=== PATIENT | female | born 1970 | race Caucasian/White ===

== ENCOUNTER → 2017-04-17 | Outpatient (CLI) | payer BC ==
[~2017-04-17] MED LIST: FLUO20CA35 PO
--- NOTE | 2017-04-18 13:37 | MAMMOGRAPHY REPORT ---
BILATERAL DIGITAL SCREENING MAMMOGRAM TOMOSYNTHESIS WITH CAD: 04/17/2017 CLINICAL HISTORY: Routine screening. Patient has no complaints. TECHNIQUE: Breast tomosynthesis in addition to standard 2D mammography was performed. Current study was also evaluated with a Computer Aided Detection (CAD) system. COMPARISON: Comparison is made to exams dated: 04/16/2016 mammogram, 04/13/2015 mammogram, 04/12/2014 m ammogram, 04/21/2012 mammogram, 03/26/2011 mammogram - [facility], and 02/22/2009. BREAST COMPOSITION: The tissue of both breasts is heterogeneously dense, which may obscure small mas ses. FINDINGS: No suspicious masses, calcifications, or areas of architectural distortion are noted in ei ther breast. There has been no significant interval change compared to prior exams. Circumscribed be nign-appearing masses are again noted bilaterally. IMPRESSION: ACR BI-RADS CATEGORY 2: BENIGN There is no mammographic evidence of malignancy. A 1 year screening mammogram is recommended. The pa tient will receive written notification of the results. Approximately 10% of breast cancers are not detected with mammography. A negative mammographic report should not delay biopsy if a clinically suggestive mass is present. Akilah Hernandez M.D. /:04/17/2017 16:38:06 Disbursement Clerk: Beatrice AARON)(M), [facility] letter sent: Normal 1/2 BI-RADS Code: ACR BI-RADS Category 2: Benign
== END | disposition home or self-care (01) ==
LOC: C.MAMM 09:40
PROVIDERS: ATTEND Internal Medicine
DX: Z12.31 Encounter for screening mammogram for malignant neoplasm of breast (principal)

== ENCOUNTER 2022-06-10 22:10 | Inpatient (IN) ==
--- NOTE | 2022-06-10 22:19 | Emergency Department Note ---
Impression & Plan Seizure, Abnormal blood electrolyte level, History of craniotomy ED Provider Note NAME: RADHA AVERY AGE: 52 SEX: F : 1970 ARRIVES VIA: Ambulance INFORMANT: Patient, ED PROVIDER(S): Percy Diaz MD CHIEF COMPLAINT: Seizure MEDICAL DECISION MAKING: Patient did present due to concern for seizure x2 prior to arrival and did receive 2 mg of IV Ativan. Patient is mildly postictal upon presentation blood work is obtained along with a CT of the head blood cultures and lactate also ordered and the patient was ord ered IV fluids and a loading dose of Keppra. History is limited initially and did arrive to provide additional history. I did call pharmacy in order to help facilitate Keppra. 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 The patient unfortunately did develop an infection at that time and was on chronic antibiotics. The patient did complete a course of this and stopped treatment last week and did have her PICC line removed. The patient did have breakthrough seizures beginning in March of last year around [facility]. Patient has been out of her acetazolamide for approximate 3 to 4 days. Patient is following with a Dr. Amezcua at [facility]. The patient's blood work shows a normal white count hemoglobin and platelet count. The patient's kidney function is unremarkable. The patient does have multiple electrolyte abnormalities including hypokalemia hypophosphatemia and hypomagnesemia which were ordered for replacement and I did order IV phosphorus magnesium and potassium. Initial lactate of 3. Repeat was 0.7. Patient is EKG showed ST and T wave abnormality but no prior EKGs for comparison. The patient tachycardia did improve and the patient was no longer on supplemental nasal cannula oxygen. I did initiate a call through the transfer center at [facility] I did speak with the patient's primary surgeon Dr. Amezcua. I did discuss the results and findings including the patient's CAT scan of the head. She did not recommend transfer at this time but would like to facilitate neurology follow-up locally as this may benefit the patient as opposed to returning to the [facility]. I did speak with the on-call hospitalist Dr. Espinosa the patient was admitted to the medicine service. Prior /Outside records reviewed: I reviewed prior pulm outpatient note from Dr. Alvarenga. Differential diagnosis: Epilepsy, infection, hypoglycemia, electrolyte abnormalities, cardiac sources, intracerebral event, trauma, toxicologic, neurologic, syncope, as well as other pathologies. Diagnostics, as interpreted by me: ECG: Sinus tachycardia, rate of 121, normal intervals normal axis, ST and T wave abnormality per leads. No priors for comparison. Cardiac monitoring: An order was placed for continuous cardiac monitoring. The monitor shows a rate of 122 with tachycardic and regular rhythm. Patient was placed on pulse oximetry Medical decision rules: none Imaging studies: See below CT of the head per stat rad Right frontal encephalomalacia may reflect a seizure focus. Right-sided transfrontal BRIDGE REPAIRER shunt placed with tip in the region of the frontal horn right lateral ventricle potentially invaginating the lateral wall of the ventricle into the adjacent parenchyma. Incidental ependymal calcifications noted right lateral ventricle. Radiologist Deion Wilkinson HPI: Patient presents due to concern for seizures. The patient reportedly had a seizure at home prior to arrival this resolved EMS was called and in route the patient initially had focality in her right upper extremity and then had generalized tonic-clonic seizure and hypoxia. The patient was placed on a nonrebreather and the patient did receive 2 of IV Ativan. This did stop the seizure. The patient BSG was in the 130s. History is limited due to the patient's postictal status. Additional history was obtained from after arrival. 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 The patient unfortunately did develop an infection at that time and was on chronic antibiotics. The patient did complete a course of this and stopped treatment last week and did have her PICC line re moved. The patient did have breakthrough seizures beginning in March of last year around [facility]. Patient has been out of her acetazolamide for approximate 3 to 4 days. Patient is following with a Dr. Amezcua at [facility]. PAST MEDICAL HISTORY: See Below PAST SURGICAL HISTORY: See Below SOCIAL HISTORY: See Below HOME MEDICATIONS: See Below ALLERGIES: See Below VITALS: See Below PHYSICAL EXAMINATION: GENERAL: NAD, wearing a mask, non-toxic. EYE EXAM: Normal conjunctiva. PERRL, no anisocoria and EOM's grossly intact w/o pain. Head: Evidence of right-sided craniotomy well-healed incisional scars noted, no overlying erythema fluctuance or drainage NECK: Supple, no nuchal rigidity, no adenopathy, non-tender. No signs of meningismus. FROM of the neck with good chin to chest and neck extension. No stridor. LUNGS: Clear to auscultation. Normal chest wall mechanics. HEART: NSR, no MRG. ABDOMEN: Abdomen soft, non-tender, normo-active bowel sounds, no masses, no rebound or guarding. BACK: No CVA TTP. SKIN: No rashes and no bruising. UPPER EXTREMITIES: Upper extremities are grossly normal. LOWER EXTREMITIES: Grossly normal, no edema. NEURO EXAM: Opens eyes to voice, cranial nerves II through XII intact, moves all 4 extremities. Past Med/Surg History Medical History Abdominal wall bulge Breast lump on right side at 12 o'clock position Murmur Neurocytoma Surgical History H/O craniotomy History of brain surgery History of hernia repair History of hysterectomy Family History Family/Other Cancer Social History Smoking Status: Current every day smoker Tobacco Type: Cigarettes Age Started Using Tobacco: 48; Second Hand Exposure: Yes; Hx Alcohol Use: Yes Hx Substance Use: No Preferred Language: Hungarian Communication Ability: Effective Beliefs That Will Affect Care: Roman Catholic Feels Safe at Home: Yes Assistive Devices: None Allergies Allergies Allergy/AdvReac Type Severity Reaction Status Date / Time Iodinated Contrast Media Allergy Severe Difficulty Verified 06/11/22 01:16 Breathing gadopentetic acid AdvReac Intermediate ITCHY Verified 06/10/22 23:43 EYES/MILD COUGH Home Meds Home Medications Medication Instructions Recorded Confirmed pantoprazole 20 mg tablet,delayed 20 mg PO DAILY 10/14/19 06/10/22 release acetazolamide 250 mg tablet 500 mg PO TID 06/10/22 06/11/22 fluoxetine 10 mg capsule 10 mg PO DAILY 06/10/22 06/10/22 levetiracetam 100 mg/mL oral 1,000 mg PO BID 06/10/22 06/10/22 solution omeprazole 20 mg capsule,delayed 20 mg PO BID 06/10/22 06/10/22 release ondansetron HCl 4 mg tablet 4 mg PO TID PRN NAUSEA/VOMITING 06/10/22 06/10/22 Results & Data (ED) Vital Signs Vital Signs - 24 hr 06/10/22 22:24 06/10/22 22:15 06/10/22 22:33 Temperature 36.9 C Temperature Source Oral Pulse Rate 109 H Pulse Rate [Apical] 111 H Pulse Rate from SpO2 Sensor Respiratory Rate 16 16 Blood Pressure 170/89 H Blood Pressure [Right Arm] 175/109 H Blood Pressure Mean 116 Blood Pressure Mean [Right Arm] 131 Pulse Oximetry 89 L 92 98 Oxygen Delivery Method Room Air Room Air Nasal Cannula Oxygen Flow Rate 0 3 Sepsis Recent Fever Within 48 Hours No Sepsis New/Unexplained Change in Mental Status No Sepsis Action Taken by Nursing No Action Required Oxygen Flow Rate - Titration 3 Pulse Oximetry Post Tiitration 99 06/10/22 23:09 06/10/22 22:14 06/10/22 22:15 Temperature Temperature Source Pulse Rate 137 H 125 H Pulse Rate [Apical] 97 H Pulse Rate from SpO2 Sensor 123 H 127 H Respiratory Rate 10 L 15 15 Blood Pressure Blood Pressure [Right Arm] 152/73 H Blood Pressure Mean Blood Pressure Mean [Right Arm] 99 Pulse Oximetry 99 93 93 Oxygen Delivery Method Nasal Cannula Oxygen Flow Rate 3 Sepsis Recent Fever Within 48 Hours Sepsis New/Unexplained Change in Mental Status Sepsis Action Taken by Nursing Oxygen Flow Rate - Titration Pulse Oximetry Post Tiitration 06/10/22 22:15 06/10/22 22:30 06/10/22 22:38 Temperature Temperature Source Pulse Rate 106 H Pulse Rate [Apical] Pulse Rate from SpO2 Sensor 106 H Respiratory Rate 22 Blood Pressure 175/109 H 170/89 H Blood Pressure [Right Arm] Blood Pressure Mean 131 116 Blood Pressure Mean [Right Arm] Pulse Oximetry 96 Oxygen Delivery Method Oxygen Flow Rate Sepsis Recent Fever Within 48 Hours Sepsis New/Unexplained Change in Mental Status Sepsis Action Taken by Nursing Oxygen Flow Rate - Titration Pulse Oximetry Post Tiitration 06/10/22 22:38 06/10/22 22:46 06/10/22 22:46 Temperature Temperature Source Pulse Rate 111 H 106 H Pulse Rate [Apical] Pulse Rate from SpO2 Sensor 111 H 108 H Respiratory Rate 17 13 Blood Pressure 124/88 Blood Pressure [Right Arm] Blood Pressure Mean 100 Blood Pressure Mean [Right Arm] Pulse Oximetry 99 96 Oxygen Delivery Method Oxygen Flow Rate Sepsis Recent Fever Within 48 Hours Sepsis New/Unexplained Change in Mental Status Sepsis Action Taken by Nursing Oxygen Flow Rate - Titration Pulse Oximetry Post Tiitration 06/10/22 23:07 06/10/22 23:08 06/10/22 23:08 Temperature Temperature Source Pulse Rate 101 H 99 H Pulse Rate [Apical] Pulse Rate from SpO2 Sensor 98 H Respiratory Rate 15 23 Blood Pressure 152/73 H Blood Pressure [Right Arm] Blood Pressure Mean 99 Blood Pressure Mean [Right Arm] Pulse Oximetry 98 Oxygen Delivery Method Oxygen Flow Rate Sepsis Recent Fever Within 48 Hours Sepsis New/Unexplained Change in Mental Status Sepsis Action Taken by Nursing Oxygen Flow Rate - Titration Pulse Oximetry Post Tiitration 06/10/22 23:15 06/10/22 23:15 06/10/22 23:30 Temperature Temperature Source Pulse Rate 101 H 96 H Pulse Rate [Apical] Pulse Rate from SpO2 Sensor 99 H 96 H Respiratory Rate 19 11 L Blood Pressure 130/105 H Blood Pressure [Right Arm] Blood Pressure Mean 113 Blood Pressure Mean [Right Arm] Pulse Oximetry 100 100 Oxygen Delivery Method Oxygen Flow Rate Sepsis Recent Fever Within 48 Hours Sepsis New/Unexplained Change in Mental Status Sepsis Action Taken by Nursing Oxygen Flow Rate - Titration Pulse Oximetry Post Tiitration 06/10/22 23:52 06/10/22 23:52 06/11/22 00:00 Temperature Temperature Source Pulse Rate Pulse Rate [Apical] Pulse Rate from SpO2 Sensor 98 H Respiratory Rate 26 H Blood Pressure 144/99 H 156/90 H Blood Pressure [Right Arm] Blood Pressure Mean 114 112 Blood Pressure Mean [Right Arm] Pulse Oximetry 97 Oxygen Delivery Method Oxygen Flow Rate Sepsis Recent Fever Within 48 Hours Sepsis New/Unexplained Change in Mental Status Sepsis Action Taken by Nursing Oxygen Flow Rate - Titration Pulse Oximetry Post Tiitration 06/11/22 00:00 06/11/22 00:30 06/11/22 00:30 Temperature Temperature Source Pulse Rate 92 H 91 H Pulse Rate [Apical] Pulse Rate from SpO2 Sensor 91 H 93 H Respiratory Rate 22 24 Blood Pressure 145/101 H Blood Pressure [Right Arm] Blood Pressure Mean 115 Blood Pressure Mean [Right Arm] Pulse Oximetry 98 99 Oxygen Delivery Method Oxygen Flow Rate Sepsis Recent Fever Within 48 Hours Sepsis New/Unexplained Change in Mental Status Sepsis Action Taken by Nursing Oxygen Flow Rate - Titration Pulse Oximetry Post Tiitration 06/11/22 01:00 06/11/22 01:30 06/11/22 02:01 Temperature Temperature Source Pulse Rate 92 H 103 H 103 H Pulse Rate [Apical] Pulse Rate from SpO2 Sensor 104 H 101 H Respiratory Rate 19 15 21 Blood Pressure 132/72 117/79 Blood Pressure [Right Arm] Blood Pressure Mean 92 91 Blood Pressure Mean [Right Arm] Pulse Oximetry 91 96 Oxygen Delivery Method Oxygen Flow Rate Sepsis Recent Fever Within 48 Hours Sepsis New/Unexplained Change in Mental Status Sepsis Action Taken by Nursing Oxygen Flow Rate - Titration Pulse Oximetry Post Tiitration Home Medications Current Medication List: was personally reviewed by me Laboratory Data Attestation: I reviewed the patient's lab results. 06/10/22 22:25 06/10/22 22:25 Lab Results 06/10/22 06/10/22 06/10/22 Range/Units 22:25 22:25 22:25 WBC 8.87 (4.8-10.8) K/ul RBC 4.07 L (4.20-5.40) M/uL Hgb 12.1 (12.0-16.0) g/dl Hct 35.6 L (37.0-47.0) % MCV 87.5 (80.0-100.0) fL MCH 29.7 (25.0-34.0) pg MCHC 34.0 (32.0-36.0) g/dL RDW Std Deviation 39.7 (36.4-46.3) fL RDW Coeff of Malaika 12.4 (11.5-14.5) % Plt Count 200 (130-400) K/uL MPV 11.4 (9.4-12.4) fL Immature Gran % (Auto) 0.5 % Neut % (Auto) 82.4 % Lymph % (Auto) 9.4 % Rusk % (Auto) 6.2 % Eos % (Auto) 1.0 % Baso % (Auto) 0.5 % Neut # (Auto) 7.32 H (1.40-6.50) K/uL Lymph # (Auto) 0.83 L (1.2-3.4) K/uL Rusk # (Auto) 0.55 (0.11-0.59) K/uL Eos # (Auto) 0.09 (0-0.50) K/uL Baso # (Auto) 0.04 (0-0.2) K/uL Immature Gran # (Auto) 0.04 (0.01-0.20) K/uL Sodium 141 (136-145) mmol/L Potassium 3.1 L (3.5-5.1) mmol/L Chloride 105 (98-107) mmol/L Carbon Dioxide 26 (21-32) mmol/L Anion Gap 10 (3-11) BUN 4 L (6-23) mg/dl Creatinine 0.62 (0.6-1.2) mg/dl Est Cr Clr Drug Dosing 126.8 ml/min Est GFR ( Amer) 118.5 ml/min Est GFR (Non-Af Amer) 102.2 ml/min BUN/Creatinine Ratio 6.5 L (10-20) Glucose 162 H (70-99(Fasting)) mg/dl Lactate 3.0 H* (0.4-2.0) mmol/L Calcium 8.5 (8.5-10.1) mg/dl Phosphorus 1.9 L (2.5-4.9) mg/dl Magnesium 1.5 L (1.7-2.4) mg/dl Total Bilirubin 0.5 (0.2-1.0) mg/dl AST 20 (13-39) U/L ALT 12 (7-52) U/L Alkaline Phosphatase 83 (34-104) U/L Total Protein 6.3 (6.0-8.3) gm/dl Albumin 3.9 (3.4-5.0) gm/dl Globulin 2.4 L (2.5-4.0) gm/dl Albumin/Globulin Ratio 1.6 (0.9-2) 06/11/22 Range/Units 00:26 WBC (4.8-10.8) K/ul RBC (4.20-5.40) M/uL Hgb (12.0-16.0) g/dl Hct (37.0-47.0) % MCV (80.0-100.0) fL MCH (25.0-34.0) pg MCHC (32.0-36.0) g/dL RDW Std Deviation (36.4-46.3) fL RDW Coeff of Malaika (11.5-14.5) % Plt Count (130-400) K/uL MPV (9.4-12.4) fL Immature Gran % (Auto) % Neut % (Auto) % Lymph % (Auto) % Rusk % (Auto) % Eos % (Auto) % Baso % (Auto) % Neut # (Auto) (1.40-6.50) K/uL Lymph # (Auto) (1.2-3.4) K/uL Rusk # (Auto) (0.11-0.59) K/uL Eos # (Auto) (0-0.50) K/uL Baso # (Auto) (0-0.2) K/uL Immature Gran # (Auto) (0.01-0.20) K/uL Sodium (136-145) mmol/L Potassium (3.5-5.1) mmol/L Chloride (98-107) mmol/L Carbon Dioxide (21-32) mmol/L Anion Gap (3-11) BUN (6-23) mg/dl Creatinine (0.6-1.2) mg/dl Est Cr Clr Drug Dosing ml/min Est GFR ( Amer) ml/min Est GFR (Non-Af Amer) ml/min BUN/Creatinine Ratio (10-20) Glucose (70-99(Fasting)) mg/dl Lactate 0.7 (0.4-2.0) mmol/L Calcium (8.5-10.1) mg/dl Phosphorus (2.5-4.9) mg/dl Magnesium (1.7-2.4) mg/dl Total Bilirubin (0.2-1.0) mg/dl AST (13-39) U/L ALT (7-52) U/L Alkaline Phosphatase (34-104) U/L Total Protein (6.0-8.3) gm/dl Albumin (3.4-5.0) gm/dl Globulin (2.5-4.0) gm/dl Albumin/Globulin Ratio (0.9-2) Administered Medications Acetaminophen (Acetaminophen 325 Mg Tab) 650 mg PO Q4H PRN PRN Reason: Pain or Fever Stop: 07/11/22 03:05 Last Admin: 06/11/22 06:46 Dose: 650 mg Documented By: DEYSI Fluoxetine HCl (Fluoxetine Hcl 10 Mg Cap) 10 mg PO DAILY HUAN Stop: 07/11/22 08:59 Last Admin: 06/11/22 09:22 Dose: 10 mg Documented By: BAUTISTA Cefepime HCl 2,000 mg/ Syringe 20 mls @ 5 mls/min IV Q8H HUAN; Protocol Stop: 06/21/22 06:44 Last Admin: 06/11/22 15:59 Dose: 5 mls/min Documented By: Admin: 06/11/22 11:04 Dose: 5 mls/min Documented By: BAUTISTA Levetiracetam (Levetiracetam Oral Soln 100mg/Ml) 1,500 mg PO BID HUAN Stop: 07/11/22 09:59 Last Admin: 06/11/22 11:04 Dose: 1,500 mg Documented By: BAUTISTA Pantoprazole Sodium (Pantoprazole 40 Mg Tab) 40 mg PO DAILY HUAN Stop: 07/11/22 08:59 Last Admin: 06/11/22 09:24 Dose: 40 mg Documented By: BAUTISTA Potassium Chloride (Potassium Chloride 20 Meq/15 Ml Udc) 20 meq PO BID HUAN Stop: 07/11/22 09:59 Last Admin: 06/11/22 11:04 Dose: 20 meq Documented By: BAUTISTA Discontinued Medications Acetazolamide (Acetazolamide 250 Mg Tab) 250 mg PO TID HUAN Stop: 07/11/22 08:59 Last Admin: 06/11/22 09:26 Dose: Not Given Documented By: BAUTISTA Acetazolamide (Acetazolamide 250 Mg Tab) 250 mg PO TID HUAN Stop: 07/11/22 09:44 Last Admin: 06/11/22 15:04 Dose: 250 mg Documented By: Admin: 06/11/22 09:46 Dose: 250 mg Documented By: BAUTISTA Sodium Chloride (Nss 1000ml) 1,000 mls @ 999 mls/hr IV .Q1H1M HUAN Stop: 06/10/22 23:30 Last Infusion: 06/11/22 00:33 Dose: 0 mls/hr Documented By: Admin: 06/10/22 23:09 Dose: 999 mls/hr Documented By: BALDO Levetiracetam 1,750 mg/ Sodium (Chloride) 267.5 mls @ 999 mls/hr IV NOW STA Stop: 06/10/22 22:40 Last Infusion: 06/10/22 23:05 Dose: 0 mls/hr Documented By: Admin: 06/10/22 22:45 Dose: 999 mls/hr Documented By: MICKIE Magnesium Sulfate/Dextrose (Magnesium Sulfate / D5w) 1 gm in 100 mls @ 100 mls/hr IV NOW STA Stop: 06/11/22 00:15 Last Infusion: 06/11/22 00:33 Dose: 0 mls/hr Documented By: Admin: 06/10/22 23:22 Dose: 100 mls/hr Documented By: BALDO Potassium Phosphate 9 mmol/ (Sodium Chloride) 253 mls @ 170 mls/hr IV 2330 ONE Stop: 06/11/22 00:59 Last Infusion: 06/11/22 02:13 Dose: 0 mls/hr Documented By: Admin: 06/11/22 00:43 Dose: 170 mls/hr Documented By: DEYSI Potassium Chloride (K Jose R / Wtr) 10 meq in 100 mls @ 100 mls/hr IV ONE ONE; Protocol Stop: 06/11/22 01:42 Last Infusion: 06/11/22 03:36 Dose: 0 mls/hr Documented By: Admin: 06/11/22 02:20 Dose: 100 mls/hr Documented By: DEYSI Sodium Chloride (Nss 1000ml) 500 mls @ 999 mls/hr IV .Q31M ONE Stop: 06/11/22 01:13 Last Infusion: 06/11/22 03:36 Dose: 0 mls/hr Documented By: Admin: 06/11/22 02:20 Dose: 999 mls/hr Documented By: DEYSI Magnesium Sulfate/Dextrose (Magnesium Sulfate / D5w) 1 gm in 100 mls @ 50 mls/hr IV ONE ONE Stop: 06/11/22 03:07 Last Infusion: 06/11/22 04:46 Dose: 0 mls/hr Documented By: Admin: 06/11/22 02:22 Dose: 50 mls/hr Documented By: DEYSI Lactated Ringer's (Lr) 1,000 mls @ 50 mls/hr IV .Q20H ONE Stop: 06/11/22 21:08 Last Admin: 06/11/22 02:22 Dose: 50 mls/hr Documented By: DEYSI Multivitamins 10 ml/ Thiamine HCl 100 mg/ Folic Acid 1 mg/Sodium Chloride 1,011.2 mls @ 100 mls/hr IV .Q10H7M ONE Stop: 06/11/22 16:41 Last Admin: 06/11/22 09:41 Dose: 100 mls/hr Documented By: BAUTISTA Levetiracetam (Levetiracetam 500 Mg Tab) 1,500 mg PO BID HUAN Stop: 07/11/22 08:59 Last Admin: 06/11/22 09:23 Dose: Not Given Documented By: BAUTISTA Potassium Chloride (Potassium Chloride Pwd 20 Meq Pack) 40 meq PO NOW STA Stop: 06/11/22 01:09 Last Admin: 06/11/22 02:20 Dose: 40 meq Documented By: DEYSI Potassium Chloride (Potassium Chloride Crtab 20 Meq Tabcr) 20 meq PO BID HUAN Stop: 07/11/22 08:59 Last Admin: 06/11/22 09:24 Dose: Not Given Documented By: BAUTISTA Potassium Phosphate (Potassium Phos 3 Mmol/1 Ml Infusion) 9 mmol IV NOW STA Stop: 06/10/22 23:17 Last Admin: 06/11/22 00:44 Dose: Not Given Documented By: DEYSI Imaging Data Radiologist's Impression: Head CT 06/10/22 22:16 CT head/brain wo con CLINICAL HISTORY: 52 years-old Female with seizure; h/o brain tumors. Acute seizure like activity with history of prior brain surgery TECHNIQUE: Multiple axial CT images of the head were obtained without contrast. A dose lowering technique was utilized adhering to the principles of ALARA. CT DOSE: 844.62 mGy.cm COMPARISON: Head CT 10/31/2011 FINDINGS: Motion degraded exam. Right frontal craniectomy changes. Right frontal approach ventriculostomy catheter. Catheter anterior to the left frontal lobe redemonstrated. Asymmetric calcifications within the right lateral ventricle appears stable. Apparent encephalomalacia of the right frontal lobe is new/progressed from the prior study. No acute intracranial hemorrhage, midline shift, acute territorial infarct, hydrocephalus or intracranial mass identified. The calvarium is intact. The paranasal sinuses, mastoid air cells, and middle ear cavities are clear. IMPRESSION: 1. Motion degraded exam without acute intracranial abnormality identified. 2. Right frontal craniectomy with right frontal approach ventriculostomy catheter present 3. No hydrocephalus identified. ACT 112: Negative or not required by law. The above report was generated using voice recognition software. It may contain grammatical, syntax or spelling errors. Electronically signed by: Zachary Shook M.D. 06/11/2022 6:39 AM Chest X-Ray 06/10/22 22:46 XR chest 1V portable CLINICAL HISTORY: seizure COMPARISON STUDY: Chest radiograph October 27, 2006 and October 16, 2021. FINDINGS: There is no pneumothorax. A suspected small left pleural effusion is present. Note is made of cardiomegaly with pulmonary vascular congestion. No overt pulmonary edema. Minimal left basilar opacity is present. As before, a disrupted shunt catheter projects over the right hemithorax. This was shown on prior chest radiograph. IMPRESSION: 1. Cardiomegaly with pulmonary vascular congestion and small left pleural effusion. Mild left basilar opacity. 2. Disrupted BRIDGE REPAIRER shunt catheter, as shown on prior chest radiograph. ACT 112: Negative or not required by law. Electronically signed by: Davon Stroud M.D. 06/11/2022 8:09 AM Discharge Plan Visit Data Chief Complaint: Seizure ED Provider: Percy Diaz Discharge Problem: Seizure, Abnormal blood electrolyte level, History of craniotomy Patient Disposition: Admitted As Inpatient Discharge Instructions Interventions: ED Discharge Assessment Last Done: 06/11/22 03:04
[2022-06-10] MEDS ORDERED: LEVETIRACETAM IV STA (22:24)
[2022-06-10] MEDS ORDERED: SODIUM CHLORIDE 0.9% IV STA (22:24)
[2022-06-10] MEDS ORDERED: SODIUM CHLORIDE 0.9% 1000ML 1,000 ML IV SCH (22:30)
[2022-06-10 23:07] LABS: Albumin Globulin Ratio 1.6 (0.9-2); Albumin Level 3.9 gm/dl (3.4-5.0); BUN Creatinine Ratio 6.5 (10-20); Bilirubin,Total 0.5 mg/dl (0.2-1.0); Calcium 8.5 mg/dl (8.5-10.1); Creatinine Clr Calc Pharmacy 126.8 ml/min; Est GFR (African American) 118.5 ml/min; Est GFR (Non-African American) 102.2 ml/min; Globulin 2.4 gm/dl (2.5-4.0); Magnesium 1.5 mg/dl (1.7-2.4); Phosphorus 1.9 mg/dl (2.5-4.9); Potassium 3.1 mmol/L (3.5-5.1); Total Protein 6.3 gm/dl (6.0-8.3)
[2022-06-10 23:09] LABS: Basophils # (auto) 0.04 K/uL (0-0.2); Basophils % (auto) 0.5 %; Eosinophils # (auto) 0.09 K/uL (0-0.50); Hematocrit (blood only) 35.6 % (37.0-47.0); Hemoglobin 12.1 g/dl (12.0-16.0); Immature Granulocytes # (auto) 0.04 K/uL (0.01-0.20); Immature Granulocytes % (auto) 0.5 %; Lymphocytes # (auto) 0.83 K/uL (1.2-3.4); Lymphocytes % (auto) 9.4 %; Mean Corpuscular Hemoglobin 29.7 pg (25.0-34.0); Mean Corpuscular Volume 87.5 fL (80.0-100.0); Mean Platelet Volume 11.4 fL (9.4-12.4); Monocytes # (auto) 0.55 K/uL (0.11-0.59); Monocytes % (auto) 6.2 %; Neutrophils # (auto) 7.32 K/uL (1.40-6.50); Neutrophils % (auto) 82.4 %; Platelet Count 200 K/uL (130-400); RDW Coefficient of Variation 12.4 % (11.5-14.5); RDW Standard Deviation 39.7 fL (36.4-46.3); Red Blood Count 4.07 M/uL (4.20-5.40); White Blood Count 8.87 K/ul (4.8-10.8)
[2022-06-10] MEDS ORDERED: MAGNESIUM SULFATE / D5W 1 GM/100 ML BAG IV STA (23:16)
[2022-06-10] MEDS ORDERED: POTASSIUM PHOS 3 MMOL/1 ML INFUSION IV STA (23:16)
[2022-06-10] MEDS ORDERED: POTASSIUM PHOSPHATE 9 MMOL in SODIUM CHLORIDE 0.9% 250 ML IV ONE (23:30)
[2022-06-11] MEDS ORDERED: POTASSIUM CHLORIDE / WTR 10 MEQ/100 ML PLCT IV ONE (00:43)
[2022-06-11] MEDS ORDERED: SODIUM CHLORIDE 0.9% 1000ML 500 ML IV ONE (00:43)
[2022-06-11] MEDS ORDERED: POTASSIUM CHLORIDE PWD 20 MEQ PACK PO STA (01:08)
[2022-06-11] MEDS ORDERED: MAGNESIUM SULFATE / D5W 1 GM/100 ML BAG IV ONE (01:08)
[2022-06-11] MEDS ORDERED: LACTATED RINGER'S 1,000 ML IV ONE (01:09)
--- NOTE | 2022-06-11 01:11 | History & Physical Report ---
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 Alcohol abuse mood disorder GERD on PPI Hyperglycemia rule out DM past tobacco abuse Medical telemetry Seizure precautions, Ativan as needed active seizures Increase Keppra dose from 1000 mg BID to 1500 mg BID Brain MRI Urine CS, Cefepime Replace electrolytes DT precautions, BARRY S if with signs of alcohol withdrawal Local Neurology consult for patient's seizure disorder as per patient's [facility] neurosurgeon (Dr. Amezcua) recommendation as per ER provider. Obtain records from [facility] neurosurgeon's office. Check hemoglobin A1c DVT prophylaxis. SCDs Re: Brain tumor Full code Patient requesting updates from providers. Mr. Gallo Feng, contact #[phone]. Text document was generated using Sunfire voice recognition software. It may contain grammatical or spelling errors. Kindly contact undersigned for clarification of any documentation item in question. History of Present Illness Chief Complaint: Seizure Primary Care Provider: Nima Bajwa History obtained from patient and records. History somewhat limited from patient secondary to intermittent lethargy. Medical history significant central neurocytoma status post resection/radiation, postop hydrocephalus status post shunting on acetazolamide, seizure disorder, mood disorder, GERD, episodic alcoholic binging as per records past tobacco abuse. 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. Surgery complicated by hydrocephalus with subsequent need for subdural peritoneal shunting. Additional surgery done last year with tumor recurrence. Postop infection status post completion of antibiotic Rx. Patient was at her mother's home yesterday when mother witness patient to have a generalized tonic-clonic seizures described as patient's eyes rolling back. EMS called to patient's home. Ativan administered which led to termination of seizure. Last seizure was in March 2022 when patient ran out off her Keppra medications. Patient denies unusual stress at home. Claims to be compliant with home medications. No headache, no chest pain, no SOB. Admits to drinking heavily from time to time. Brought to the ER for evaluation. IV Keppra administered at the ER. 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 [employer] Allergies Allergy/AdvReac Type Severity Reaction Status Date / Time Iodinated Contrast Media Allergy Severe Difficulty Verified 06/11/22 01:16 Breathing gadopentetic acid AdvReac Intermediate ITCHY Verified 06/10/22 23:43 EYES/MILD COUGH Home Medications Medication Instructions Recorded Confirmed Type pantoprazole 20 mg tablet,delayed 20 mg PO DAILY 10/14/19 06/10/22 History release acetazolamide 250 mg tablet 250 mg PO TID 06/10/22 06/10/22 History fluoxetine 10 mg capsule 10 mg PO DAILY 06/10/22 06/10/22 History levetiracetam 100 mg/mL oral 1,000 mg PO BID 06/10/22 06/10/22 History solution omeprazole 20 mg capsule,delayed 20 mg PO BID 06/10/22 06/10/22 History release ondansetron HCl 4 mg tablet 4 mg PO TID PRN NAUSEA/VOMITING 06/10/22 06/10/22 History Past Med/Surg History Medical History Abdominal wall bulge Breast lump on right side at 12 o'clock position Murmur Neurocytoma Surgical History H/O craniotomy History of brain surgery History of hernia repair History of hysterectomy Family History Family/Other Cancer Social History Smoking Status: Current every day smoker Tobacco Type: Cigarettes Age Started Using Tobacco: 48; Second Hand Exposure: Yes; Hx Alcohol Use: Yes Hx Substance Use: No Preferred Language: Bahraini Feels Safe at Home: Yes Review of Systems Review of Systems: Could not be reliably obtained secondary to intermittent lethargy Physical Exam Physical Exam: GENERAL: Slightly uncomfortable, intermittent lethargy, obese, no respiratory distress SKIN: Normal color, warm HEENT: Alopecia, [place] palpebral conjunctivae, no ptosis, dry buccal mucosa NECK : Supple, short neck, no tenderness CHEST : Decreased breath sounds, no tenderness HEART : RRR, no obvious murmurs ABDOMEN: Some distention, nontender EXTREMITIES : Minimal LE swelling, no LE tenderness, no other conspicuous deformities noted NEUROLOGIC : Intermittent lethargy, no facial asymmetry, gait and stance not assessed Results & Data Results & Data ([facility]) Vital Signs (Past 12 Hours) Vital Signs Temp Pulse Pulse Resp BP BP Pulse Ox 06/11/22 00:30 91 H 24 99 06/11/22 00:30 145/101 H 06/11/22 00:00 92 H 22 98 06/11/22 00:00 156/90 H 06/10/22 23:52 26 H 97 06/10/22 23:52 144/99 H 06/10/22 23:30 96 H 11 L 100 06/10/22 23:15 130/105 H 06/10/22 23:15 101 H 19 100 06/10/22 23:08 99 H 23 98 06/10/22 23:08 152/73 H 06/10/22 23:07 101 H 15 06/10/22 22:46 106 H 13 96 06/10/22 22:46 124/88 06/10/22 22:38 111 H 17 99 06/10/22 22:38 170/89 H 06/10/22 22:30 106 H 22 96 06/10/22 22:15 175/109 H 06/10/22 22:15 125 H 15 93 06/10/22 22:14 137 H 15 93 06/10/22 23:09 97 H 10 L 152/73 H 99 06/10/22 22:33 109 H 16 170/89 H 98 06/10/22 22:15 36.9 C 111 H 16 175/109 H 92 06/10/22 22:24 89 L O2 Del Method O2 Flow Rate 06/11/22 00:30 06/11/22 00:30 06/11/22 00:00 06/11/22 00:00 06/10/22 23:52 06/10/22 23:52 06/10/22 23:30 06/10/22 23:15 06/10/22 23:15 06/10/22 23:08 06/10/22 23:08 06/10/22 23:07 06/10/22 22:46 06/10/22 22:46 06/10/22 22:38 06/10/22 22:38 06/10/22 22:30 06/10/22 22:15 06/10/22 22:15 06/10/22 22:14 06/10/22 23:09 Nasal Cannula 3 06/10/22 22:33 Nasal Cannula 3 06/10/22 22:15 Room Air 06/10/22 22:24 Room Air 0 Laboratory Results Laboratory Results WBC 8.87 K/ul (4.8-10.8) 06/10/22 22:25 RBC 4.07 M/uL (4.20-5.40) L 06/10/22 22:25 Hgb 12.1 g/dl (12.0-16.0) 06/10/22 22:25 Hct 35.6 % (37.0-47.0) L 06/10/22 22:25 MCV 87.5 fL (80.0-100.0) 06/10/22 22:25 MCH 29.7 pg (25.0-34.0) 06/10/22 22:25 MCHC 34.0 g/dL (32.0-36.0) 06/10/22 22:25 RDW Std Deviation 39.7 fL (36.4-46.3) 06/10/22 22:25 RDW Coeff of Malaika 12.4 % (11.5-14.5) 06/10/22 22:25 Plt Count 200 K/uL (130-400) 06/10/22 22:25 MPV 11.4 fL (9.4-12.4) 06/10/22 22:25 Immature Gran % (Auto) 0.5 % 06/10/22 22:25 Neut % (Auto) 82.4 % 06/10/22 22:25 Lymph % (Auto) 9.4 % 06/10/22 22:25 [place] % (Auto) 6.2 % 06/10/22 22:25 Eos % (Auto) 1.0 % 06/10/22 22:25 Baso % (Auto) 0.5 % 06/10/22 22:25 Neut # (Auto) 7.32 K/uL (1.40-6.50) H 06/10/22 22:25 Lymph # (Auto) 0.83 K/uL (1.2-3.4) L 06/10/22 22:25 [place] # (Auto) 0.55 K/uL (0.11-0.59) 06/10/22 22:25 Eos # (Auto) 0.09 K/uL (0-0.50) 06/10/22 22:25 Baso # (Auto) 0.04 K/uL (0-0.2) 06/10/22 22:25 Immature Gran # (Auto) 0.04 K/uL (0.01-0.20) 06/10/22 22:25 Sodium 141 mmol/L (136-145) 06/10/22 22:25 Potassium 3.1 mmol/L (3.5-5.1) L 06/10/22 22:25 Chloride 105 mmol/L (98-107) 06/10/22 22:25 Carbon Dioxide 26 mmol/L (21-32) 06/10/22 22:25 Anion Gap 10 (3-11) 06/10/22 22:25 BUN 4 mg/dl (6-23) L 06/10/22 22:25 Creatinine 0.62 mg/dl (0.6-1.2) 06/10/22 22:25 Est Cr Clr Drug Dosing 126.8 ml/min 06/10/22 22:25 Est GFR ( Amer) 118.5 ml/min 06/10/22 22:25 Est GFR (Non-Af Amer) 102.2 ml/min 06/10/22 22:25 BUN/Creatinine Ratio 6.5 (10-20) L 06/10/22 22:25 Glucose 162 mg/dl (70-99(Fasting)) H 06/10/22 22:25 Lactate 0.7 mmol/L (0.4-2.0) 06/11/22 00:26 Calcium 8.5 mg/dl (8.5-10.1) 06/10/22 22: Phosphorus 1.9 mg/dl (2.5-4.9) L 06/10/22 22:25 Magnesium 1.5 mg/dl (1.7-2.4) L 06/10/22 22:25 Total Bilirubin 0.5 mg/dl (0.2-1.0) 06/10/22 22:25 AST 20 U/L (13-39) 06/10/22 22:25 ALT 12 U/L (7-52) 06/10/22 22:25 Alkaline Phosphatase 83 U/L (34-104) 06/10/22 22:25 Total Protein 6.3 gm/dl (6.0-8.3) 06/10/22 22:25 Albumin 3.9 gm/dl (3.4-5.0) 06/10/22 22:25 Globulin 2.4 gm/dl (2.5-4.0) L 06/10/22 22:25 Albumin/Globulin Ratio 1.6 (0.9-2) 06/10/22 22:[address] head initial read: Right frontal encephalomalacia may reflect a seizure focus Right-sided trans-frontal [employer]AB[employer]IT[employer] TRAINING [employer]IST shunt in place with tip in the region of the frontal horn right lateral ventricle potentially invaginating the lateral wall of the ventricle into the adjacent parenchyma Incidental ependymal calcifications noted right lateral ventricle. Chest x-ray as per my interpretation atelectasis, minimal congestion EKG as per my interpretation : Rate 120, sinus tachycardia, normal axis, T wave abnormalities inferior leads
[2022-06-11] MEDS ORDERED: LORazepam 2 MG/1 ML VIAL IV PRN (03:06)
[2022-06-11 03:21] LABS: Appearance Urine Cloudy (Clear); Bacteria Urine Automated Negative (Negative); Bilirubin Urine Negative (Negative); Blood Urine Negative (Negative); Color Urine Yellow; Epithelial Cell Urine Auto >30 /lpf (0-5); Glucose Urine UA Negative (Negative); Ketones Urine Negative (Negative); Leukocyte Esterase Urine 3+ (Negative); Nitrite Urine Negative (Negative); Protein Urine Negative (Negative); RBC Urine Automated 0-4 /hpf (0-4); Specific Gravity Urine 1.012 (1.000-1.030); Urobilinogen Urine Negative (Negative); WBC Urine Automated >30 /hpf (0-5); pH Urine 5.5 (4.5-7.5)
[2022-06-11 03:55] LABS: Cast Urine Automated 0 /lpf (0-5)
[2022-06-11 05:46] LABS: Calcium 7.5 mg/dl (8.5-10.1)
[2022-06-11 05:51] LABS: BUN Creatinine Ratio 4.3 (10-20); Est GFR (African American) 130.7 ml/min; Est GFR (Non-African American) 112.8 ml/min
[2022-06-11 06:08] LABS: Basophils # (auto) 0.03 K/uL (0-0.2); Basophils % (auto) 0.4 %; Eosinophils # (auto) 0.01 K/uL (0-0.50); Eosinophils % (auto) 0.1 %; Hemoglobin 10.7 g/dl (12.0-16.0); Immature Granulocytes # (auto) 0.02 K/uL (0.01-0.20); Immature Granulocytes % (auto) 0.3 %; Lymphocytes # (auto) 1.37 K/uL (1.2-3.4); Lymphocytes % (auto) 17.2 %; Mean Corpuscular Hgb Conc 33.4 g/dL (32.0-36.0); Mean Corpuscular Volume 86.7 fL (80.0-100.0); Mean Platelet Volume 11.2 fL (9.4-12.4); Monocytes % (auto) 7.5 %; Neutrophils # (auto) 5.92 K/uL (1.40-6.50); Neutrophils % (auto) 74.5 %; Platelet Count 194 K/uL (130-400); RDW Coefficient of Variation 12.2 % (11.5-14.5); RDW Standard Deviation 39.1 fL (36.4-46.3); Red Blood Count 3.69 M/uL (4.20-5.40); White Blood Count 7.95 K/ul (4.8-10.8)
[2022-06-11] MEDS ORDERED: MULTI-VITAMIN INFUSION 10 ML, THIAMINE HCL 100 MG, FOLIC ACID 1 MG in SODIUM CHLORIDE 0... IV ONE (06:35)
[2022-06-11] MEDS ORDERED: LORazepam 0.5 MG TAB PO PRN (06:36)
--- NOTE | 2022-06-11 06:41 | CT Scan Report ---
CT head/brain wo con CLINICAL HISTORY: 52 years-old Female with seizure; h/o brain tumors. Acute seizure like activity wi th history of prior brain surgery TECHNIQUE: Multiple axial CT images of the head were obtained without contrast. A dose lowering tech nique was utilized adhering to the principles of ALARA. CT DOSE: 844.62 mGy.cm COMPARISON: Head CT 10/31/2011 FINDINGS: Motion degraded exam. Right frontal craniectomy changes. Right frontal approach ventriculostomy maximo ter. Catheter anterior to the left frontal lobe redemonstrated. Asymmetric calcifications within the right lateral ventricle appears stable. Apparent encephalomalacia of the right frontal lobe is new/pr ogressed from the prior study. No acute intracranial hemorrhage, midline shift, acute territorial inf arct, hydrocephalus or intracranial mass identified. The calvarium is intact. The paranasal sinuses, mastoid air cells, and middle ear cavities are clear . IMPRESSION: 1. Motion degraded exam without acute intracranial abnormality identified. 2. Right frontal craniectomy with right frontal approach ventriculostomy catheter present 3. No hydrocephalus identified. ACT 112: Negative or not required by law. The above report was generated using voice recognition software. It may contain grammatical, syntax o r spelling errors. Electronically signed by: Zachary Shook M.D. 06/11/2022 6:39 AM
[2022-06-11] MEDS: ACETAMINOPHEN 325 MG TAB PO PRN (06:46)
[2022-06-11 07:51] LABS: Estimated Average Glucose 105 mg/dl; Hemoglobin A1C 5.3 % (4.5-5.6)
--- NOTE | 2022-06-11 08:10 | XRay Report ---
XR chest 1V portable CLINICAL HISTORY: seizure COMPARISON STUDY: Chest radiograph October 27, 2006 and October 16, 2021. FINDINGS: There is no pneumothorax. A suspected small left pleural effusion is present. Note is made of cardiomegaly with pulmonary vascular congestion. No overt pulmonary edema. Minimal left basilar op acity is present. As before, a disrupted shunt catheter projects over the right hemithorax. This was shown on prior chest radiograph. IMPRESSION: 1. Cardiomegaly with pulmonary vascular congestion and small left pleural effusion. Mild left basilar opacity. 2. Disrupted MANAGER BABY shunt catheter, as shown on prior chest radiograph. ACT 112: Negative or not required by law. Electronically signed by: Davon Stroud M.D. 06/11/2022 8:09 AM
[2022-06-11] MEDS ORDERED: POTASSIUM CHLORIDE CRTAB 20 MEQ TABCR PO SCH (09:00)
[2022-06-11] MEDS ORDERED: NON-FORMULARY MEDICATION (Omeprazole 20 mg capsule,delayed release(DR/EC)) PO SCH (09:00)
[2022-06-11] MEDS ORDERED: acetaZOLAMIDE 250 MG TAB PO SCH (09:00)
[2022-06-11] MEDS ORDERED: levETIRAcetam 500 MG TAB PO SCH (09:00)
[2022-06-11] MEDS: FLUoxetine HCL 10 MG CAP PO SCH (09:22)
[2022-06-11] MEDS: PANTOprazole 40 MG TAB PO SCH (09:24)
[2022-06-11] MEDS: acetaZOLAMIDE 250 MG TAB PO SCH ×3 (09:46→20:40)
[2022-06-11] MEDS: CEFEPIME 2,000 MG in SYRINGE 0 ML IV SCH ×2 (11:04→15:59)
[2022-06-11] MEDS: POTASSIUM CHLORIDE 20 MEQ/15 ML UDC PO SCH ×2 (11:04→20:41)
[2022-06-11] MEDS: levETIRAcetam ORAL SOLN 100MG/ML PO SCH ×2 (11:04→20:40)
--- NOTE | 2022-06-11 15:22 | Hospitalist Progress Note ---
Date of Service June 11, 2022 Assessment & Plan (1) Seizure: Plan: Breakthrough seizure H/O Central neurocytoma S/P resection/radiation Postop Hydrocephalus S/P shunting --CT Head:Motion degraded exam without acute intracranial abnormality identified. Right frontal craniectomy with right frontal approach ventriculostomy catheter present. No hydrocephalus identified. --MRI, EEG pending --Obtain records from [facility] neurosurgeon's office -- Neurology consulted Continue Diamox Keppra increased to 1500 mg twice daily Continue seizure precautions Hypokalemia Hypophosphatemia Hypomagnesemia Replete electrolytes as needed Encourage to increase oral intake Abnormal urinalysis Possible UTI Blood, urine culture pending Empirically on Rocephin Possible Alcohol abuse Counseled to quit drinking Continue thiamine, folic acid Monitor for any metabolic Mood disorder GERD on PPI Hyperglycemia HbA1C: 5.3 Past tobacco abuse per records DVT Px: SCDs for now Code Status Full code Admission and Anticipated Discharge Date Admission Date: June 11, 2022 Subjective Patient is seen and examined at bedside States having headache which is currently improving Denies any chest pain, shortness of, dizziness, nausea, abdominal Discussed with patient's family over the phone No seizure activity since hospitalization No other complaints Review of Systems Review of Systems: All systems reviewed & are unremarkable except as noted in Subjective Physical Exam Physical Exam: Physical Exam: Vitals signs as noted above General Appearance:Moderately built and nourished, no apparent distress Head: normocephalic, Atraumatic, +Post surgical scar Eyes: normal inspection, EOMI Neck: supple, Trachea midline Respiratory/Chest: Normal breath sounds, CTA, No accessory muscle use Cardiovascular: S1, S2, No murmur Abdomen/GI:Soft, Non tender, Bowel sounds present Extremities/Musculoskeletal:normal inspection, Trace edema Neurologic/Psych:AAOX3, grossly no focal neurological deficits Skin: normal color, warm Results & Data Results & Data ([facility]) Vital Signs (Past 12 Hours) Vital Signs Pulse Resp BP Pulse Ox O2 Del Method 06/11/22 09:00 79 16 140/79 95 Room Air 06/11/22 08:00 84 18 120/72 95 Room Air 06/11/22 07:00 86 20 135/83 95 Room Air 06/11/22 06:00 86 20 121/74 93 06/11/22 05:30 91 H 17 91 06/11/22 05:00 87 17 141/90 H 92 06/11/22 04:30 88 18 99 06/11/22 04:00 92 H 16 116/72 100 06/11/22 03:30 97 H 26 H 100 Laboratory Results Short CBC 06/10/22 06/11/22 Range/Units 22:25 04:50 WBC 8.87 7.95 (4.8-10.8) K/ul Hgb 12.1 10.7 L (12.0-16.0) g/dl Hct 35.6 L 32.0 L (37.0-47.0) % Plt Count 200 194 (130-400) K/uL BMP 06/10/22 06/11/22 22:25 04:50 Sodium 141 142 Potassium 3.1 L 3.0 L Chloride 105 108 H Carbon Dioxide 26 28 BUN 4 L 2 L Creatinine 0.62 0.46 L Glucose 162 H 108 H Calcium 8.5 7.5 L Liver Function 06/10/22 Range/Units 22:25 Total Bilirubin 0.5 (0.2-1.0) mg/dl AST 20 (13-39) U/L ALT 12 (7-52) U/L Alkaline Phosphatase 83 (34-104) U/L Albumin 3.9 (3.4-5.0) gm/dl Urine 06/11/22 Range/Units Unknown Urine Color Yellow Urine Appearance Cloudy A (Clear) Urine pH 5.5 (4.5-7.5) Ur Specific [place] 1.012 (1.000-1.030) Urine Protein Negative (Negative) Urine Glucose (UA) Negative (Negative)
--- NOTE | 2022-06-11 15:28 | Electrocardiogram Report ---
Test Reason : Blood Pressure : / mmHG Vent. Rate : 121 BPM Atrial Rate : 121 BPM P-R Int : 152 ms QRS Dur : 084 ms QT Int : 330 ms P-R-T Axes : 050 038 -04 degrees QTc Int : 468 ms Poor data quality, interpretation may be adversely affected Sinus tachycardia Possible Left atrial enlargement Abnormal ECG No previous ECGs available Confirmed by Efrain Peres ([id number]) on 06/11/2022 3:28:48 PM Referred By: REFERRED SELF Confirmed By:Efrain Peres
--- NOTE | 2022-06-11 18:59 | Neurology Consultation ---
Date of Consultation June 11, 2022 Assessment & Plan (1) Seizure disorder: Impression: The patient has [id number] central neurocytoma, status post resection, radiation therapy, who began experiencing generalized seizures few months ago. She has had 2 generalized seizure yesterday. Based on description, the patient had initial partial seizure, which was generalized. 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 She reports being compliant on antiepileptic medication. Electrolyte abnormalities, alcohol use, and urinary tract infections might lower seizure threshold. Head CT did not show acute intracranial pathology. Plan: Keppra dosage was increased to 1500 mg twice a day. Serum trough levetiracetam level in a week. Treatment of urinary tract infections and management no electrolyte abnormalities. Seizure precautions are fully explained to patient and family. The patient should not drive motor vehicles. The patient will be admitted to hospital for further work-up. Brain MRI with and without contrast as suggested by the patient's ne urosurgeon. Routine EEG. We should contact with the patient's neurosurgeon at [facility], after brain MRI. If the patient stays seizure-free, then she can be discharged home. Follow-up with neurology clinic. I will contact with [facility] neurology to make an appointment. (2) History of craniotomy: Impression: The patient had first craniotomy in 2006 and second craniotomy in 2021 at [facility]. She has also had shunt placement. Debridement surgery was in April 2022. Plan/recommendations: The patient will be followed by her regular neurologist at [facility]. (3) Brain tumor, recurrent: Impression: As seen above. 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 History of Present Illness Reason for Consultation: Seizures Requesting Physician: Corey Canada MD Attending Physician: Corey Canada MD History of Present Illness The patient is a 52-year-old pleasant female, who was brought to emergency department after having a generalized seizure with prolonged postictal confus ion. She was diagnosed with intraventricular central neurocytoma in 2006, status post a resection at [facility]. Surgery was complicated by hydrocephalus, and the patient needed shunting. The patient needed another craniotomy and tumor resection surgery because of recurrence, in January 2022. She was empirically started on Keppra, after stopping this medication, the patient had a first generalized seizure activity, and was restarted on higher dose of Keppra. After having surgical site infection, the patient was treated on antibiotics, and revision surgery was done probably in April 2022. The patient reports being compliant. He drinks alcoholic beverages frequently but not in the large amount. He was recently diagnosed with urinary tract infection. While the patient was in the ambulance, she had another generalized seizure. According to , the patient was having some confusion and staring episodes prior to generalized seizure. She lost her consciousness with tonic-clonic activity, without tongue biting or urinary incontinence, which lasted for few minutes. After the generalized convulsion, the patient was confused, and was not responsive, which lasted for several minutes, and family decided to call EMS. 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 The patient has been seizure-free since coming to the emergency department. I have reviewed the patient's chart including imaging studies and visualized them personally. I have discussed the case with the patient and family, and I have answered their questions in detail. Allergies Allergy/AdvReac Type Severity Reaction Status Date / Time Iodinated Contrast Media Allergy Severe Difficulty Verified 06/11/22 01:16 Breathing gadopentetic acid AdvReac Intermediate ITCHY Verified 06/10/22 23:43 EYES/MILD COUGH Home Medications Medication Instructions Recorded Confirmed Type pantoprazole 20 mg tablet,delayed 20 mg PO DAILY 10/14/19 06/10/22 History release acetazolamide 250 mg tablet 500 mg PO TID 06/10/22 06/11/22 History fluoxetine 10 mg capsule 10 mg PO DAILY 06/10/22 06/10/22 History levetiracetam 100 mg/mL oral 1,000 mg PO BID 06/10/22 06/10/22 History solution omeprazole 20 mg capsule,delayed 20 mg PO BID 06/10/22 06/10/22 History release ondansetron HCl 4 mg tablet 4 mg PO TID PRN NAUSEA/VOMITING 06/10/22 06/10/22 History Patient History Medical History Abdominal wall bulge Breast lump on right side at 12 o'clock position Murmur Neurocytoma Surgical History H/O craniotomy History of brain surgery History of hernia repair History of hysterectomy Family History Family/Other Cancer Social History Smoking Status: Current every day smoker Tobacco Type: Cigarettes Age Started Using Tobacco: 48; Second Hand Exposure: Yes; Hx Alcohol Use: Yes Hx Substance Use: No Preferred Language: Setswana Communication Ability: Effective Beliefs That Will Affect Care: Zoroastrianism Feels Safe at Home: Yes Assistive Devices: None Review of Systems Review of Systems: All systems reviewed & are unremarkable except as noted in HPI & below Physical Exam Physical Exam: General Examination: Constitutional: Well developed person in no acute distress. HENT: Normal exam with inspection. Frontal scalp scar tissue from craniotomy which looks healthy. CV: Hearth rhythm is regular. Neck: Supple, no carotid bruits. Lungs: Non-labored and comfortable breathing. Abdomen: Soft, non-tender, non-distended. Skin: No rash or ecchymosis. Extremities: No edema or cyanosis NEUROLOGICAL EXAMINATION: Mental Status: Alert and oriented to place, person and time. Some custodial cognitive impairment is reported. Cranial Nerves: II-XII are intact. No nystagmus. Funduscopy: Normal looking optic discs. Motor: 5/5 in all extremities without asymmetry. Tone: Normal without spasticity or rigidity. Sensory: Intact to all sensory modalities. Coordination: No dysmetria with FTN testing. Speech: Fluent. Comprehension is intact. Gait: Not assessed. DTRs: 1+ all. No Babinsky Musculoskeletal: Normal muscle bulk, no atrophy. Results & Data ([facility]) Vital Signs (Past 12 Hours) Vital Signs Pulse Resp BP Pulse Ox O2 Del Method 06/11/22 15:09 85 13 06/11/22 15:09 117/68 95 06/11/22 14:00 72 15 95 06/11/22 12:00 84 20 94 06/11/22 10:00 79 17 94 06/11/22 09:00 79 16 140/79 95 Room Air 06/11/22 08:00 84 18 120/72 95 Room Air 06/11/22 07:00 86 20 135/83 95 Room Air Laboratory Results Laboratory Results - last 24 hr 06/10/22 06/10/22 06/10/22 22:25 22:25 22:25 WBC 8.87 RBC 4.07 L Hgb 12.1 Hct 35.6 L MCV 87.5 MCH 29.7 MCHC 34.0 RDW Std Deviation 39.7 RDW Coeff of Malaika 12.4 Plt Count 200 MPV 11.4 Immature Gran % (Auto) 0.5 Neut % (Auto) 82.4 Lymph % (Auto) 9.4 Pickett % (Auto) 6.2 Eos % (Auto) 1.0 Baso % (Auto) 0.5 Neut # (Auto) 7.32 H Lymph # (Auto) 0.83 L Pickett # (Auto) 0.55 Eos # (Auto) 0.09 Baso # (Auto) 0.04 Immature Gran # (Auto) 0.04 Sodium 141 Potassium 3.1 L Chloride 105 Carbon Dioxide 26 Anion Gap 10 BUN 4 L Creatinine 0.62 Est Cr Clr Drug Dosing 126.8 Est GFR ( Amer) 118.5 Est GFR (Non-Af Amer) 102.2 BUN/Creatinine Ratio 6.5 L Glucose 162 H Estimat Average Glucose Hemoglobin A1c Lactate 3.0 H* Calcium 8.5 Phosphorus 1.9 L Magnesium 1.5 L Total Bilirubin 0.5 AST 20 ALT 12 Alkaline Phosphatase 83 Total Protein 6.3 Albumin 3.9 Globulin 2.4 L Albumin/Globulin Ratio 1.6 Urine Color Urine Appearance Urine pH Ur Specific Blythe Urine Protein Urine Glucose (UA) Urine Ketones Urine Blood Urine Nitrite Urine Bilirubin Urine Urobilinogen Ur Leukocyte Esterase Urine WBC (Auto) Urine RBC (Auto) U Hyaline Cast (Auto) U Epithel Cells (Auto) Urine Bacteria (Auto) Urine Yeast SARS-CoV-2, RNA, NAAT 06/11/22 06/11/22 06/11/22 00:26 04:50 04:50 WBC 7.95 RBC 3.69 L Hgb 10.7 L Hct 32.0 L MCV 86.7 MCH 29.0 MCHC 33.4 RDW Std Deviation 39.1 RDW Coeff of Malaika 12.2 Plt Count 194 MPV 11.2 Immature Gran % (Auto) 0.3 Neut % (Auto) 74.5 Lymph % (Auto) 17.2 Pickett % (Auto) 7.5 Eos % (Auto) 0.1 Baso % (Auto) 0.4 Neut # (Auto) 5.92 Lymph # (Auto) 1.37 Pickett # (Auto) 0.60 H Eos # (Auto) 0.01 Baso # (Auto) 0.03 Immature Gran # (Auto) 0.02 Sodium Potassium Chloride Carbon Dioxide Anion Gap BUN Creatinine Est Cr Clr Drug Dosing Est GFR ( Amer) Est GFR (Non-Af Amer) BUN/Creatinine Ratio Glucose Estimat Average Glucose 105 Hemoglobin A1c 5.3 Lactate 0.7 Calcium Phosphorus Magnesium Total Bilirubin AST ALT Alkaline Phosphatase Total Protein Albumin Globulin Albumin/Globulin Ratio Urine Color Urine Appearance Urine pH Ur Specific Blythe Urine Protein Urine Glucose (UA) Urine Ketones Urine Blood Urine Nitrite Urine Bilirubin Urine Urobilinogen Ur Leukocyte Esterase Urine WBC (Auto) Urine RBC (Auto) U Hyaline Cast (Auto) U Epithel Cells (Auto) Urine Bacteria (Auto) Urine Yeast SARS-CoV-2, RNA, NAAT 06/11/22 06/11/22 06/11/22 04:50 Unknown Unknown WBC RBC Hgb Hct MCV MCH MCHC RDW Std Deviation RDW Coeff of Malaika Plt Count MPV Immature Gran % (Auto) Neut % (Auto) Lymph % (Auto) Pickett % (Auto) Eos % (Auto) Baso % (Auto) Neut # (Auto) Lymph # (Auto) Pickett # (Auto) Eos # (Auto) Baso # (Auto) Immature Gran # (Auto) Sodium 142 Potassium 3.0 L Chloride 108 H Carbon Dioxide 28 Anion Gap 6 BUN 2 L Creatinine 0.46 L Est Cr Clr Drug Dosing 171.0 Est GFR ( Amer) 130.7 Est GFR (Non-Af Amer) 112.8 BUN/Creatinine Ratio 4.3 L Glucose 108 H Estimat Average Glucose Hemoglobin A1c Lactate Calcium 7.5 L Phosphorus Magnesium 2.0 Total Bilirubin AST ALT Alkaline Phosphatase Total Protein Albumin Globulin Albumin/Globulin Ratio Urine Color Yellow Urine Appearance Cloudy A Urine pH 5.5 Ur Specific Blythe 1.012 Urine Protein Negative Urine Glucose (UA) Negative Urine Ketones Negative Urine Blood Negative Urine Nitrite Negative Urine Bilirubin Negative Urine Urobilinogen Negative Ur Leukocyte Esterase 3+ H Urine WBC (Auto) >30 H Urine RBC (Auto) 0-4 U Hyaline Cast (Auto) 0 U Epithel Cells (Auto) >30 H Urine Bacteria (Auto) Negative Urine Yeast Not Reportable SARS-CoV-2, RNA, NAAT NEGATIVE Diagnostic Findings Head CT 06/10/22 22:16 CT head/brain wo con CLINICAL HISTORY: 52 years-old Female with seizure; h/o brain tumors. Acute seizure like activity with history of prior brain surgery TECHNIQUE: Multiple axial CT images of the head were obtained without contrast. A dose lowering technique was utilized adhering to the principles of ALARA. CT DOSE: 844.62 mGy.cm COMPARISON: Head CT 10/31/2011 FINDINGS: Motion degraded exam. Right frontal craniectomy changes. Right frontal approach ventriculostomy catheter. Catheter anterior to the left frontal lobe redemonstrated. Asymmetric calcifications within the right lateral ventricle appears stable. Apparent encephalomalacia of the right frontal lobe is new/progressed from the prior study. No acute intracranial hemorrhage, midline shift, acute territorial infarct, hydrocephalus or intracranial mass identified. The calvarium is intact. The paranasal sinuses, mastoid air cells, and middle ear cavities are clear. IMPRESSION: 1. Motion degraded exam without acute intracranial abnormality identified. 2. Right frontal craniectomy with right frontal approach ventriculostomy catheter present 3. No hydrocephalus identified. ACT 112: Negative or not required by law. The above report was generated using voice recognition software. It may contain grammatical, syntax or spelling errors. Electronically signed by: Zachary Shook M.D. 06/11/2022 6:39 AM Chest X-Ray 06/10/22 22:46 XR chest 1V portable CLINICAL HISTORY: seizure COMPARISON STUDY: Chest radiograph October 27, 2006 and October 16, 2021. FINDINGS: There is no pneumothorax. A suspected small left pleural effusion is present. Note is made of cardiomegaly with pulmonary vascular congestion. No overt pulmonary edema. Minimal left basilar opacity is present. As before, a disrupted shunt catheter projects over the right hemithorax. This was shown on prior chest radiograph. IMPRESSION: 1. Cardiomegaly with pulmonary vascular congestion and small left pleural effusion. Mild left basilar opacity. 2. Disrupted INSTITUTIONAL AIDE shunt catheter, as shown on prior chest radiograph. ACT 112: Negative or not required by law. Electronically signed by: Davon Stroud M.D. 06/11/2022 8:09 AM
[2022-06-12] MEDS: CEFEPIME 2,000 MG in SYRINGE 0 ML IV SCH ×2 (00:13→08:06)
[2022-06-12] MEDS: ACETAMINOPHEN 325 MG TAB PO PRN (06:14)
[2022-06-12] MEDS: levETIRAcetam ORAL SOLN 100MG/ML PO SCH ×2 (07:46→20:28)
[2022-06-12] MEDS: POTASSIUM CHLORIDE 20 MEQ/15 ML UDC PO SCH ×2 (07:46→20:28)
[2022-06-12] MEDS: acetaZOLAMIDE 250 MG TAB PO SCH ×3 (07:46→20:26)
[2022-06-12] MEDS: FOLIC ACID 1 MG TAB PO SCH (07:47)
[2022-06-12] MEDS: PANTOprazole 40 MG TAB PO SCH (07:47)
[2022-06-12] MEDS: FLUoxetine HCL 10 MG CAP PO SCH (07:47)
[2022-06-12] MEDS: THIAMINE HCL 100 MG TAB PO SCH (07:47)
[2022-06-12] MEDS: MULTIVITAMIN TAB PO SCH (07:47)
[2022-06-12 09:01] LABS: Hematocrit (blood only) 36.6 % (37.0-47.0); Hemoglobin 12.3 g/dl (12.0-16.0); Mean Corpuscular Hemoglobin 29.4 pg (25.0-34.0); Mean Corpuscular Hgb Conc 33.6 g/dL (32.0-36.0); Mean Corpuscular Volume 87.4 fL (80.0-100.0); Mean Platelet Volume 11.1 fL (9.4-12.4); Platelet Count 194 K/uL (130-400); RDW Coefficient of Variation 12.3 % (11.5-14.5); RDW Standard Deviation 39.4 fL (36.4-46.3); Red Blood Count 4.19 M/uL (4.20-5.40); White Blood Count 5.93 K/ul (4.8-10.8)
[2022-06-12] MEDS ORDERED: diphenhydrAMINE HCL 25 MG/10 ML UDC PO ONE (09:09)
[2022-06-12 09:35] LABS: BUN Creatinine Ratio 4.2 (10-20); Calcium 8.8 mg/dl (8.5-10.1); Creatinine Clr Calc Pharmacy 104.9 ml/min; Est GFR (African American) 111.9 ml/min; Est GFR (Non-African American) 96.6 ml/min; Phosphorus 2.9 mg/dl (2.5-4.9); Potassium 3.7 mmol/L (3.5-5.1)
[2022-06-12] MEDS ORDERED: LORazepam 2 MG/1 ML VIAL IV ONE (11:00)
[2022-06-12] MEDS ORDERED: Nursing to Pharmacy Communication SCH ×2 (11:45→12:15)
--- NOTE | 2022-06-12 13:46 | Electroencephalogram ---
EEG Procedure Note Date of Service June 12, 2022 Start / End Times Start Time: 09:24 End Time: 09:44 Referring Physician Corey Canada History Seizure disorder. Right craniotomies for tumor resection. Home Medication List Medication Instructions Recorded Confirmed Type pantoprazole 20 mg tablet,delayed 20 mg PO DAILY 10/14/19 06/10/22 History release acetazolamide 250 mg tablet 500 mg PO TID 06/10/22 06/11/22 History fluoxetine 10 mg capsule 10 mg PO DAILY 06/10/22 06/10/22 History levetiracetam 100 mg/mL oral 1,000 mg PO BID 06/10/22 06/10/22 History solution omeprazole 20 mg capsule,delayed 20 mg PO BID 06/10/22 06/10/22 History release ondansetron HCl 4 mg tablet 4 mg PO TID PRN NAUSEA/VOMITING 06/10/22 06/10/22 History Inpatient Medication List Acetaminophen (Acetaminophen 325 Mg Tab) 650 mg PO Q4H PRN PRN Reason: Pain or Fever Stop: 07/11/22 03:05 Last Admin: 06/12/22 06:14 Dose: 650 mg Documented By: Admin: 06/11/22 06:46 Dose: 650 mg Documented By: DEYSI Acetazolamide (Acetazolamide 250 Mg Tab) 500 mg PO TID [facility] Stop: 07/11/22 20:59 Last Admin: 06/12/22 07:46 Dose: 500 mg Documented By: Admin: 06/11/22 20:40 Dose: 500 mg Documented By: CHIQUITA Fluoxetine HCl (Fluoxetine Hcl 10 Mg Cap) 10 mg PO DAILY [facility] Stop: 07/11/22 08:59 Last Admin: 06/12/22 07:47 Dose: 10 mg Documented By: Admin: 06/11/22 09:22 Dose: 10 mg Documented By: BAUTISTA Folic Acid (Folic Acid 1 Mg Tab) 1 mg PO QAM [facility] Stop: 07/12/22 08:59 Last Admin: 06/12/22 07:47 Dose: 1 mg Documented By: YOBANY Cefepime HCl 2,000 mg/ Syringe 20 mls @ 5 mls/min IV Q8H [facility]; Protocol Stop: 06/21/22 06:44 Last Admin: 06/12/22 08:06 Dose: 5 mls/min Documented By: Admin: 06/12/22 00:13 Dose: 5 mls/min Documented By: Admin: 06/11/22 15:59 Dose: 5 mls/min Documented By: Admin: 06/11/22 11:04 Dose: 5 mls/min Documented By: BAUTISTA Levetiracetam (Levetiracetam Oral Soln 100mg/Ml) 1,500 mg PO BID [facility]AN Stop: 07/11/22 09:59 Last Admin: 06/12/22 07:46 Dose: 1,500 mg Documented By: Admin: 06/11/22 20:40 Dose: 1,500 mg Documented By: Admin: 06/11/22 11:04 Dose: 1,500 mg Documented By: BAUTISTA Multivitamins (Multivitamin Tab) 1 tab PO QAM [facility] Stop: 07/12/22 08:59 Last Admin: 06/12/22 07:47 Dose: 1 tab Documented By: YOBANY Pantoprazole Sodium (Pantoprazole 40 Mg Tab) 40 mg PO DAILY [facility]AN Stop: 07/11/22 08:59 Last Admin: 06/12/22 07:47 Dose: 40 mg Documented By: Admin: 06/11/22 09:24 Dose: 40 mg Documented By: BAUTISTA Potassium Chloride (Potassium Chloride 20 Meq/15 Ml Udc) 20 meq PO BID [facility]AN Stop: 07/11/22 09:59 Last Admin: 06/12/22 07:46 Dose: 20 meq Documented By: Admin: 06/11/22 20:41 Dose: 20 meq Documented By: Admin: 06/11/22 11:04 Dose: 20 meq Documented By: BAUTISTA Thiamine HCl (Thiamine Hcl 100 Mg Tab) 100 mg PO QAM [facility] Stop: 07/12/22 08:59 Last Admin: 06/12/22 07:47 Dose: 100 mg Documented By: YOBANY Discontinued Medications Acetazolamide (Acetazolamide 250 Mg Tab) 250 mg PO TID [facility]AN Stop: 07/11/22 08:59 Last Admin: 06/11/22 09:26 Dose: Not Given Documented By: BAUTISTA Acetazolamide (Acetazolamide 250 Mg Tab) 250 mg PO TID [facility]AN Stop: 07/11/22 09:44 Last Admin: 06/11/22 15:04 Dose: 250 mg Documented By: Admin: 06/11/22 09:46 Dose: 250 mg Documented By: BAUTISTA Diphenhydramine HCl (Diphenhydramine Hcl 25 Mg/10 Ml Udc) 50 mg PO ONE ONE Stop: 06/12/22 09:10 Last Admin: 06/12/22 12:10 Dose: Not Given Documented By: YOBANY Sodium Chloride (Nss 1000ml) 1,000 mls @ 999 mls/hr IV .Q1H1M HUAN Stop: 06/10/22 23:30 Last Infusion: 06/11/22 00:33 Dose: 0 mls/hr Documented By: Admin: 06/10/22 23:09 Dose: 999 mls/hr Documented By: BALDO Levetiracetam 1,750 mg/ Sodium (Chloride) 267.5 mls @ 999 mls/hr IV NOW STA Stop: 06/10/22 22:40 Last Infusion: 06/10/22 23:05 Dose: 0 mls/hr Documented By: Admin: 06/10/22 22:45 Dose: 999 mls/hr Documented By: MICKIE Magnesium Sulfate/Dextrose (Magnesium Sulfate / D5w) 1 gm in 100 mls @ 100 mls/hr IV NOW STA Stop: 06/11/22 00:15 Last Infusion: 06/11/22 00:33 Dose: 0 mls/hr Documented By: Admin: 06/10/22 23:22 Dose: 100 mls/hr Documented By: BALDO Potassium Phosphate 9 mmol/ (Sodium Chloride) 253 mls @ 170 mls/hr IV 2330 ONE Stop: 06/11/22 00:59 Last Infusion: 06/11/22 02:13 Dose: 0 mls/hr Documented By: Admin: 06/11/22 00:43 Dose: 170 mls/hr Documented By: DEYSI Potassium Chloride (K Jose R / Wtr) 10 meq in 100 mls @ 100 mls/hr IV ONE ONE; Protocol Stop: 06/11/22 01:42 Last Infusion: 06/11/22 03:36 Dose: 0 mls/hr Documented By: Admin: 06/11/22 02:20 Dose: 100 mls/hr Documented By: DEYSI Sodium Chloride (Nss 1000ml) 500 mls @ 999 mls/hr IV .Q31M ONE Stop: 06/11/22 01:13 Last Infusion: 06/11/22 03:36 Dose: 0 mls/hr Documented By: Admin: 06/11/22 02:20 Dose: 999 mls/hr Documented By: DEYSI Magnesium Sulfate/Dextrose (Magnesium Sulfate / D5w) 1 gm in 100 mls @ 50 mls/hr IV ONE ONE Stop: 06/11/22 03:07 Last Infusion: 06/11/22 04:46 Dose: 0 mls/hr Documented By: Admin: 06/11/22 02:22 Dose: 50 mls/hr Documented By: DEYSI Lactated Ringer's (Lr) 1,000 mls @ 50 mls/hr IV .Q20H ONE Stop: 06/11/22 21:08 Last Infusion: 06/11/22 21:02 Dose: 0 mls/hr Documented By: Admin: 06/11/22 02:22 Dose: 50 mls/hr Documented By: DEYSI Multivitamins 10 ml/ Thiamine HCl 100 mg/ Folic Acid 1 mg/Sodium Chloride 1,011.2 mls @ 100 mls/hr IV .Q10H7M ONE Stop: 06/11/22 16:41 Last Infusion: 06/11/22 20:45 Dose: 0 mls/hr Documented By: Admin: 06/11/22 09:41 Dose: 100 mls/hr Documented By: BAUTISTA Levetiracetam (Levetiracetam 500 Mg Tab) 1,500 mg PO BID HUAN Stop: 07/11/22 08:59 Last Admin: 06/11/22 09:23 Dose: Not Given Documented By: BAUTISTA Potassium Chloride (Potassium Chloride Pwd 20 Meq Pack) 40 meq PO NOW STA Stop: 06/11/22 01:09 Last Admin: 06/11/22 02:20 Dose: 40 meq Documented By: DEYSI Potassium Chloride (Potassium Chloride Crtab 20 Meq Tabcr) 20 meq PO BID HUAN Stop: 07/11/22 08:59 Last Admin: 06/11/22 09:24 Dose: Not Given Documented By: BAUTISTA Potassium Phosphate (Potassium Phos 3 Mmol/1 Ml Infusion) 9 mmol IV NOW STA Stop: 06/10/22 23:17 Last Admin: 06/11/22 00:44 Dose: Not Given Documented By: DEYSI Description This is a 21 electrode EEG with a single channel dedicated to limited EKG. The electrodes were placed in accordance with the International 10-20 system. Interpretation Background activity shows good organization but focal increased amplitude at right posterior frontal region which is considered to be breach effect from craniotomy. There is 30 to 45 V, 9 Hz posterior activity, attenuates with eye opening bilaterally and symmetrically. Right posterior frontal activity shows intermittent slowing but also moderately frequent, polyspikes, spike and slow wave discharges which radiates to the left frontal electrodes occasionally. In one occasion, right posterior frontal epileptiform discharges lasted for 10 seconds without any clinical correlates, otherwise, there is no electrographic seizures. Sleep is not captured during the study. Photic stimulations induce posterior driving responses bilaterally. Hyperventilation is not attempted. Clinical Correlation Impression:This is an abnormal EEG, recorded in wakefulness only. Right posterior frontal polyspikes, spike and slow wave discharges are potentially epileptogenic, as seen in localization-related epilepsy, with or without secondary generalization. There is no electrographic seizure during this study. Craniotomy related right frontal breach effect is noticed. Intermittent right frontal slowing might suggest underlying structural pathology or dysfunction.
--- NOTE | 2022-06-12 15:53 | Neurology Progress Note ---
Date of Service June 12, 2022 Assessment & Plan (1) Seizure disorder: Plan: Impression: The patient has [id number] central neurocytoma, status post resection, radiation therapy, who began experiencing generalized seizures few months ago. She has had 2 generalized seizure the day before yesterday.. Based on description, the patient had initial partial seizure, which was generalized. 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 She reports being compliant on antiepileptic medication. Electrolyte abnormalities, alcohol use, and urinary tract infections might lower seizure threshold. Head CT did not show acute intracranial pathology. EEG showed right frontal epileptogenic discharges. Brain MRI is pending. No additional seizures since admission. Plan: Continue on Keppra 1500 mg twice a day. Serum trough levetiracetam level in a week. Treatment of urinary tract infections and management no electrolyte abnormalities. Seizure precautions are fully explained to patient and family. The patient should not drive motor vehicles. Brain MRI with and without contrast is scheduled tomorrow. We should contact with the patient's neurosurgeon at [facility], after brain MRI. If the patient stays seizure-free, then she can be discharged home after brain MRI. Follow-up with neurology clinic. I contacted with Dr. Ashok Lerner's office to make an appointment. (2) History of craniotomy: Plan: Impression: The patient had first craniotomy in 2006 and second craniotomy in [address] [facility]. She has also had shunt placement. Debridement surgery was in April 2022. Plan/recommendations: The patient will be followed by her regular neurosurgeon at [facility]. (3) Brain tumor, recurrent: Plan: Impression: As seen above. 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 Admission and Anticipated Discharge Date Admission Date: June 11, 2022 Subjective The patient has stayed seizure-free since admission. Her cognitive functioning as well as headache has been improved mostly. Today's EEG findings are explained to the patient. Brain MRI scheduled for tomorrow. Review of Systems Review of Systems: All systems reviewed & are unremarkable except as noted in Subjective Physical Exam Physical Exam: General Examination: Constitutional: Well developed person in no acute distress. HENT: Normal exam with inspection. Frontal scalp scar tissue from craniotomy which looks healthy. CV: Hearth rhythm is regular. Neck: Supple, no carotid bruits. Lungs: Non-labored and comfortable breathing. Abdomen: Soft, non-tender, non-distended. Skin: No rash or ecchymosis. Extremities: No edema or cyanosis NEUROLOGICAL EXAMINATION: Mental Status: Alert and oriented to place, person and time. 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 Cranial Nerves: II-XII are intact. No nystagmus. Funduscopy: Normal looking optic discs. Motor: 5/5 in all extremities without asymmetry. Tone: Normal without spasticity or rigidity. Sensory: Intact to all sensory modalities. Coordination: No dysmetria with FTN testing. Speech: Fluent. Comprehension is intact. Gait: Not assessed. DTRs: 1+ all. No Babinsky Musculoskeletal: Normal muscle bulk, no atrophy. Results & Data ([facility]) Vital Signs (Past 12 Hours) Vital Signs Temp Pulse Pulse Resp BP Pulse Ox O2 Del Method 06/12/22 15:02 36.9 C 85 16 121/67 98 Room Air 06/12/22 11:14 36.7 C 75 16 99/65 L 97 Room Air 06/12/22 07:25 79 06/12/22 06:09 36.7 C 83 18 139/89 97 Room Air Laboratory Results Laboratory Results - last 24 hr 06/12/22 06/12/22 06/12/22 08:33 08:33 08:33 WBC 5.93 RBC 4.19 L Hgb 12.3 Hct 36.6 L MCV 87.4 MCH 29.4 MCHC 33.6 RDW Std Deviation 39.4 RDW Coeff of Malaika 12.3 Plt Count 194 MPV 11.1 Sodium 142 Potassium 3.7 D Chloride 112 H Carbon Dioxide 23 Anion Gap 7 BUN 3 L Creatinine 0.71 Est Cr Clr Drug Dosing 104.9 Est GFR ( Amer) 111.9 Est GFR (Non-Af Amer) 96.6 BUN/Creatinine Ratio 4.2 L Glucose 125 H Calcium 8.8 Phosphorus 2.9 D Magnesium 2.0 Procalcitonin < 0.[address] 06/10/22 22:16 CT head/brain wo con CLINICAL HISTORY: 52 years-old Female with seizure; h/o brain tumors. Acute seizure like activity with history of prior brain surgery TECHNIQUE: Multiple axial CT images of the head were obtained without contrast. A dose lowering technique was utilized adhering to the principles of ALARA. CT DOSE: 844.62 mGy.cm COMPARISON: Head CT 10/31/2011 FINDINGS: Motion degraded exam. Right frontal craniectomy changes. Right frontal approach ventriculostomy catheter. Catheter anterior to the left frontal lobe redemonstrated. Asymmetric calcifications within the right lateral ventricle appears stable. Apparent encephalomalacia of the right frontal lobe is new/progressed from the prior study. No acute intracranial hemorrhage, midline shift, acute territorial infarct, hydrocephalus or intracranial mass identified. The calvarium is intact. The paranasal sinuses, mastoid air cells, and middle ear cavities are clear. IMPRESSION: 1. Motion degraded exam without acute intracranial abnormality identified. 2. Right frontal craniectomy with right frontal approach ventriculostomy catheter present 3. No hydrocephalus identified. ACT 112: Negative or not required by law. The above report was generated using voice recognition software. It may contain grammatical, syntax or spelling errors. Electronically signed by: Zachary Shook M.D. 06/11/2022 6:39 AM Chest X-Ray 06/10/22 22:46 XR chest 1V portable CLINICAL HISTORY: seizure COMPARISON STUDY: Chest radiograph October 27, 2006 and October 16, 2021. FINDINGS: There is no pneumothorax. A suspected small left pleural effusion is present. Note is made of cardiomegaly with pulmonary vascular congestion. No overt pulmonary edema. Minimal left basilar opacity is present. As before, a disrupted shunt catheter projects over the right hemithorax. This was shown on prior chest radiograph. IMPRESSION: 1. Cardiomegaly with pulmonary vascular congestion and small left pleural effusion. Mild left basilar opacity. 2. Disrupted [employer] shunt catheter, as shown on prior chest radiograph. ACT 112: Negative or not required by law. Electronically signed by: Davon Stroud M.D. 06/11/2022 8:09 AM EEG: This is an abnormal EEG, recorded in wakefulness only. Right posterior frontal polyspikes, spike and slow wave discharges are potentially epileptogenic, as seen in localization-related epilepsy, with or without secondary generalization. There is no electrographic seizure during this study. Craniotomy related right frontal breach effect is noticed. Intermittent right frontal slowing might suggest underlying structural pathology or dysfunction.
--- NOTE | 2022-06-12 15:59 | Hospitalist Progress Note ---
Date of Service June 12, 2022 Assessment & Plan (1) Seizure: Plan: Breakthrough seizure H/O Central neurocytoma S/P resection/radiation Postop Hydrocephalus S/P shunting --CT Head:Motion degraded exam without acute intracranial abnormality identified. Right frontal craniectomy with right frontal approach ventriculostomy catheter present. No hydrocephalus identified. --EEG:This is an abnormal EEG, recorded in wakefulness only. Right posterior frontal polyspikes, spike and slow wave discharges are potentially epileptogenic, as seen in localization-related epilepsy, with or without secondary generalization. There is no electrographic seizure during this study. Craniotomy related right frontal breach effect is noticed. Intermittent right frontal slowing might suggest underlying structural pathology or dysfunction. --MRI Brain-- pending (needs premedicated for contrast)--plan for imaging tomorrow --Obtain records from [facility] neurosurgeon's office --Appreciate Neurology Input Continue Diamox Keppra increased to 1500 mg twice daily Continue seizure precautions Needs Keppra level checked in 1 week Needs follow-up with neurosurgery upon discharge Patient prefers to follow-up with Dr. Ashok Lerner upon discharge Hypokalemia Hypophosphatemia Hypomagnesemia Replete electrolytes as needed Encourage to increase oral intake Abnormal urinalysis Possible UTI Blood culture negative to date Urine culture Streptococcus species Cefepime de-escalated to Rocephin Possible Alcohol abuse Counseled to quit drinking Continue thiamine, folic acid Monitor for any withdrawal Mood disorder GERD on PPI Hyperglycemia HbA1C: 5.3 Past tobacco abuse per records DVT Px: SCDs for now Code Status Full code Admission and Anticipated Discharge Date Admission Date: June 11, 2022 Subjective Patient is seen and examined at bedside Headache resolved No seizure activity since hospitalization Offers no new complaints Denies any chest pain, dyspnea, dizziness, nausea, abdominal Review of Systems Review of Systems: All systems reviewed & are unremarkable except as noted in Subjective Physical Exam Physical Exam: Physical Exam: Vitals signs as noted above General Appearance:Moderately built and nourished, no apparent distress Head: normocephalic, Atraumatic, +Post surgical scar Eyes: normal inspection, EOMI Neck: supple, Trachea midline Respiratory/Chest: Normal breath sounds, CTA, No accessory muscle use Cardiovascular: S1, S2, No murmur Abdomen/GI:Soft, Non tender, Bowel sounds present Extremities/Musculoskeletal:normal inspection, Trace edema Neurologic/Psych:AAOX3, grossly no focal neurological deficits Skin: normal color, warm Results & Data Results & Data ([facility]) Vital Signs (Past 12 Hours) Vital Signs Temp Pulse Pulse Resp BP Pulse Ox O2 Del Method 06/12/22 15:02 36.9 C 85 16 121/67 98 Room Air 06/12/22 11:14 36.7 C 75 16 99/65 L 97 Room Air 06/12/22 07:25 79 06/12/22 06:09 36.7 C 83 18 139/89 97 Room Air Laboratory Results Short CBC 06/12/22 Range/Units 08:33 WBC 5.93 (4.8-10.8) K/ul Hgb 12.3 (12.0-16.0) g/dl Hct 36.6 L (37.0-47.0) % Plt Count 194 (130-400) K/uL BMP 06/12/22 08:33 Sodium 142 Potassium 3.7 D Chloride 112 H Carbon Dioxide 23 BUN 3 L Creatinine 0.71 Glucose 125 H Calcium 8.8
[2022-06-12] MEDS ORDERED: cefTRIAXone SODIUM 2,000 MG in DEXTROSE 5% 50 ML IV SCH (16:00)
[2022-06-12] MEDS ORDERED: diphenhydrAMINE HCL 25 MG/10 ML UDC PO PRN (17:29)
--- NOTE | 2022-06-12 17:33 | Communication Note ---
Date of Service: June 12, 2022 Developed Allergic symptoms thought to be after administering Ceftriaxone. Will DC Ceftriaxone. ? Contaminated blood culture. Will reassess tomorrow for possible need added on other antibiotics.
[2022-06-12] MEDS ORDERED: methylPREDNISolone 40 MG in SYRINGE 0 ML IV SCH (18:00)
[2022-06-13] MEDS: methylPREDNISolone 40 MG in SYRINGE 0 ML IV SCH ×2 (02:17→08:54)
[2022-06-13] MEDS ORDERED: diphenhydrAMINE 50 MG/ML VIAL IV ONE (08:30)
[2022-06-13] MEDS ORDERED: FAMOTIDINE 20 MG in SYRINGE 3 ML IV ONE (08:30)
[2022-06-13 08:36] LABS: BUN Creatinine Ratio 9.4 (10-20); Calcium 9.2 mg/dl (8.5-10.1); Creatinine Clr Calc Pharmacy 116.5 ml/min; Est GFR (African American) 117.3 ml/min; Est GFR (Non-African American) 101.2 ml/min; Magnesium 2.3 mg/dl (1.7-2.4); Phosphorus 4.1 mg/dl (2.5-4.9); Potassium 4.3 mmol/L (3.5-5.1)
[2022-06-13] MEDS ORDERED: LORazepam 2 MG/1 ML VIAL IV SCH (09:00)
[2022-06-13] MEDS: FOLIC ACID 1 MG TAB PO SCH (09:01)
[2022-06-13] MEDS: THIAMINE HCL 100 MG TAB PO SCH (09:01)
[2022-06-13] MEDS: levETIRAcetam ORAL SOLN 100MG/ML PO SCH ×2 (09:01→21:40)
[2022-06-13] MEDS: acetaZOLAMIDE 250 MG TAB PO SCH ×3 (09:01→21:41)
[2022-06-13] MEDS: FLUoxetine HCL 10 MG CAP PO SCH (09:01)
[2022-06-13] MEDS: PANTOprazole 40 MG TAB PO SCH (09:01)
[2022-06-13] MEDS: MULTIVITAMIN TAB PO SCH (09:01)
[2022-06-13] MEDS: POTASSIUM CHLORIDE 20 MEQ/15 ML UDC PO SCH ×2 (09:02→21:40)
[2022-06-13] MEDS ORDERED: GADOBUTROL 65ML VIAL IV ONE (11:00)
[2022-06-13] MEDS ORDERED: VANCOMYCIN CONSULT ACTIVE PRN (12:48)
[2022-06-13] MEDS ORDERED: VANCOMYCIN HCL 1,750 MG in SODIUM CHLORIDE 0.9% 500 ML IV ONE (13:30)
--- NOTE | 2022-06-13 14:10 | Pharmacy Report ---
Pharmacy PK ABX Note - Date of Service June 13, 2022 - Assessment and Plan Assessment * Ms Feng is a 52 year old F receiving vancomycin for treatment of UTI. * Pertinent microbiologic data includes: urine culture growing Enterococcus faecalis (self sensitive) and Staph sp. * Pt developed hives, contributed to ceftriaxone, yesterday. * Pertinent PMH includes seizures, complicated neurological history w/ craniotomies in 2006 and 2021 w/ shunting. Plan Vancomycin * Loading dose: 1750 mg IV x 1 * Maintenance dose: 1500 mg IV every 12 hours * Regimen is predicted to achieve target AUC/LAURA of 400-600 mg/L.hr * Will evaluate a vancomycin level after 3-4 doses, if patient remains hospitalized and on vanc therapy. Pharmacy will continue to follow and will adjust dose/frequency as necessary. Thank you. Pharmacy has transitioned to AUC monitoring for vancomycin. AUC/LAURA is the preferred PK/PD target and is associated with decreased risk of nephrotoxicity compared to traditional trough targets.
--- NOTE | 2022-06-13 14:13 | Magnetic Resonance Report ---
MRI OF THE BRAIN COMBO CLINICAL HISTORY: Seizure. History of brain tumor. COMPARISON STUDY: CT of the brain dated 06/10/2022. MRI of the brain dated 01/23/2011. TECHNIQUE: MRI of the brain was performed utilizing various T1 and T2-weighted sequences in the axial , sagittal, and coronal planes. Contrast-enhanced sequences were acquired following the administratio n of 9 cc of Gadavist. The patient was premedicated for a reported history of contrast allergy. The e xamination is degraded by motion artifact. FINDINGS: Brain parenchyma: There is right frontal encephalomalacia related to previous surgery. A right fronta l approach ventriculostomy catheter is unchanged in position. There is also a catheter anterior to th e left frontal lobe. There is no hemorrhage or midline shift. There is no restricted diffusion typica l for acute ischemia. There is a 1.6 x 1.1 x 1.4 cm peripherally enhancing infiltrative lesion identi fied in the right frontal lobe white matter above the lateral ventricle seen on axial postcontrast im age #111 of 170. There are small foci of restricted diffusion within this lesion. This closely approx imates and may extend into the right lateral ventricle. There is significant surrounding edema, and t his is located adjacent to postsurgical change. There is a 12 mm enhancing lesion in the left frontal cortex seen on axial image #81 with significant surrounding edema. No extra-axial fluid collection i s seen. Minimal microangiopathic changes observed. The cerebellar tonsils are normal in configuration . Ventricles, sulci, and cisterns: The left ventricle is larger than the right. This is similar to prio r studies. Postsurgical change and scarring is suggested within the right lateral ventricle. There is no hydrocephalus. Pituitary and sella: Unremarkable. Intracranial vasculature: Normal flow voids are maintained at the skull base. Orbits: The bony orbits are grossly intact. Orbital contents are normal in appearance. Sinuses and mastoids: There is trace fluid in the right maxillary antrum. The remaining paranasal sin uses and the metatarsals are clear. Calvarium: There is postsurgical change from right frontal craniectomy. No destructive calvarial lesi on is seen. There is a left frontal hugo hole. Cervical cord: Partially visualized cervical spinal cord is normal in morphology and signal intensity . IMPRESSION: 1. There is no hemorrhage, midline shift, or evidence of acute ischemia. 2. Postsurgical change as above with [address] 3. There is a 1.6 cm peripherally enhancing and infiltrative appearing lesion identified in the right frontal lobe white matter as detailed above with significant surrounding edema. This is consistent w ith recurrent/residual disease. 4. An additional 12 mm enhancing lesion is seen in the left frontal lobe cortex with surrounding aracelis a. This is also consistent with neoplasm. 5. These findings should be correlated with the patient's neurosurgical and oncological history as we ll as with any more recent prior outside imaging studies. ACT 112: Negative or not required by law. Electronically signed by: Donny Moss M.D. 06/13/2022 2:11 PM
--- NOTE | 2022-06-13 16:04 | Hospitalist Progress Note ---
Date of Service June 13, 2022 Assessment & Plan (1) Seizure: Plan: Breakthrough seizure H/O Central neurocytoma S/P resection/radiation Postop Hydrocephalus S/P shunting --CT Head:Motion degraded exam without acute intracranial abnormality identified. Right frontal craniectomy with right frontal approach ventriculostomy catheter present. No hydrocephalus identified. --EEG:This is an abnormal EEG, recorded in wakefulness only. Right posterior frontal polyspikes, spike and slow wave discharges are potentially epileptogenic, as seen in localization-related epilepsy, with or without secondary generalization. There is no electrographic seizure during this study. Craniotomy related right frontal breach effect is noticed. Intermittent right frontal slowing might suggest underlying structural pathology or dysfunction. --MRI Brain: There is no hemorrhage, midline shift, or evidence of acute ischemia. Postsurgical change as above with [address] There is a 1.6 cm peripherally enhancing and infiltrative appearing lesion identified in the right frontal lobe white matter as detailed above with significant surrounding edema. This is consistent with recurrent/residual disease. An additional 12 mm enhancing lesion is seen in the left frontal lobe cortex with surrounding edema. This is also consistent with neoplasm. These findings should be correlated with the patient's neurosurgical and oncological history as well as with any more recent prior outside imaging studies. --Obtain records from [facility] neurosurgeon's office --Appreciate Neurology Input Continue Diamox Keppra increased to 1500 mg twice daily Continue seizure precautions Needs Keppra level checked in 1 week Needs follow-up with neurosurgery upon discharge Patient prefers to follow-up with Dr. Ashok Lerner upon discharge Patient has virtual visit with her Neurosurgeon Dr.Judy Amezcua tomorrow. Images of MRI are uploaded to [facility] for review Will also discuss with Neurologist section hand for any other recommendations based on MRI results Hypokalemia Hypophosphatemia Hypomagnesemia Replete electrolytes as needed Encourage to increase oral intake UTI-POA Blood culture negative to date Urine culture Staph species, Enterococcus faecalis Cefepime de-escalated to Rocephin>> discontinued as patient developed hives on Rocephin Started on vancomycin today Possible Alcohol abuse Counseled to quit drinking Continue thiamine, folic acid Monitor for any withdrawal Mood disorder GERD on PPI Hyperglycemia HbA1C: 5.3 Past tobacco abuse per records DVT Px: SCDs for now Code Status Full code Admission and Anticipated Discharge Date Admission Date: June 11, 2022 Subjective Patient is seen and examined at bedside States feeling well Urine culture growing Enterococcus, staph species No recurrence of headache No events overnight Discussed with patient's family over the phone Denies any chest pain, dyspnea, dizziness, nausea, abdominal Review of Systems Review of Systems: All systems reviewed & are unremarkable except as noted in Subjective Physical Exam Physical Exam: Physical Exam: Vitals signs as noted above General Appearance:Moderately built and nourished, no apparent distress Head: normocephalic, Atraumatic, +Post surgical scar Eyes: normal inspection, EOMI Neck: supple, Trachea midline Respiratory/Chest: Normal breath sounds, CTA, No accessory muscle use Cardiovascular: S1, S2, No murmur Abdomen/GI:Soft, Non tender, Bowel sounds present Extremities/Musculoskeletal:normal inspection, Trace edema Neurologic/Psych:AAOX3, grossly no focal neurological deficits Skin: normal color, warm Results & Data Results & Data ([facility]) Vital Signs (Past 12 Hours) Vital Signs Temp Pulse Pulse Resp BP Pulse Ox O2 Del Method 06/13/22 15:09 36.4 C L 74 16 117/77 96 Room Air 06/13/22 11:58 36.5 C 75 15 129/84 98 Room Air 06/13/22 07:22 69 06/13/22 07:13 36.7 C 73 16 111/72 94 Room Air 06/13/22 05:01 36.6 C 69 18 102/68 97 Room Air Laboratory Results [facility] 06/13/22 05:59 Sodium 140 Potassium 4.3 Chloride 111 H Carbon Dioxide 21 BUN 6 Creatinine 0.64 Glucose 146 H Calcium 9.2
[2022-06-13] MEDS ORDERED: VANCOMYCIN HCL 1,500 MG in SODIUM CHLORIDE 0.9% 500 ML IV SCH (20:00)
[2022-06-14 06:33] LABS: BUN Creatinine Ratio 15.2 (10-20); Calcium 8.5 mg/dl (8.5-10.1); Creatinine Clr Calc Pharmacy 94.2 ml/min; Est GFR (African American) 98.4 ml/min; Est GFR (Non-African American) 84.9 ml/min; Potassium 3.6 mmol/L (3.5-5.1)
[2022-06-14] MEDS ORDERED: NITROFURANTOIN MONOHYDRATE 100 MG CAP PO SCH (09:00)
[2022-06-14] MEDS: FOLIC ACID 1 MG TAB PO SCH (09:04)
[2022-06-14] MEDS: PANTOprazole 40 MG TAB PO SCH (09:04)
[2022-06-14] MEDS: FLUoxetine HCL 10 MG CAP PO SCH (09:04)
[2022-06-14] MEDS: acetaZOLAMIDE 250 MG TAB PO SCH (09:04)
[2022-06-14] MEDS: POTASSIUM CHLORIDE 20 MEQ/15 ML UDC PO SCH (09:04)
[2022-06-14] MEDS: THIAMINE HCL 100 MG TAB PO SCH (09:06)
[2022-06-14] MEDS: levETIRAcetam ORAL SOLN 100MG/ML PO SCH (09:06)
[2022-06-14] MEDS: MULTIVITAMIN TAB PO SCH (09:06)
--- NOTE | 2022-06-14 11:06 | Hospitalist Progress Note ---
Date of Service June 14, 2022 Assessment & Plan (1) Seizure: Plan: Breakthrough seizure H/O Central neurocytoma S/P resection/radiation Postop Hydrocephalus S/P shunting --CT Head:Motion degraded exam without acute intracranial abnormality identified. Right frontal craniectomy with right frontal approach ventriculostomy catheter present. No hydrocephalus identified. --EEG:This is an abnormal EEG, recorded in wakefulness only. Right posterior frontal polyspikes, spike and slow wave discharges are potentially epileptogenic, as seen in localization-related epilepsy, with or without secondary generalization. There is no electrographic seizure during this study. Craniotomy related right frontal breach effect is noticed. Intermittent right frontal slowing might suggest underlying structural pathology or dysfunction. --MRI Brain: There is no hemorrhage, midline shift, or evidence of acute ischemia. Postsurgical change as above with [address] There is a 1.6 cm peripherally enhancing and infiltrative appearing lesion identified in the right frontal lobe white matter as detailed above with significant surrounding edema. This is consistent with recurrent/residual disease. An additional 12 mm enhancing lesion is seen in the left frontal lobe cortex with surrounding edema. This is also consistent with neoplasm. These findings should be correlated with the patient's neurosurgical and oncological history as well as with any more recent prior outside imaging studies. --Obtain records from [facility] neurosurgeon's office --Appreciate Neurology Input Continue Diamox Keppra increased to 1500 mg twice daily Continue seizure precautions Needs Keppra level checked in 1 week Patient has virtual visit with her Neurosurgeon Dr.Judy Amezcua tomorrow. Images of MRI are uploaded to [facility] for review Advised to follow-up with neurology and neurosurgery upon discharge Hypokalemia Hypophosphatemia Hypomagnesemia Replete electrolytes as needed Encourage to increase oral intake UTI-POA Blood culture negative to date Urine culture Staph species, Enterococcus faecalis Cefepime de-escalated to Rocephin>> discontinued as patient developed hives on Rocephin Received IV vancomycin for 1 day>> transition to nitrofurantoin Possible Alcohol abuse Counseled to quit drinking Continue thiamine, folic acid Monitor for any withdrawal Mood disorder GERD on PPI Hyperglycemia HbA1C: 5.3 Past tobacco abuse per records DVT Px: SCDs for now Code Status Full code Disposition Home Admission and Anticipated Discharge Date Admission Date: June 11, 2022 Subjective Patient is seen and examined at bedside No complaints Had virtual with her Neurosurgeon in [facility] today No events overnight Discussed with patient's family at bedside Denies any chest pain, dyspnea, dizziness, nausea, abdominal Plan to be discharged home today Physical Exam Physical Exam: Physical Exam: Vitals signs as noted above General Appearance:Moderately built and nourished, no apparent distress Head: normocephalic, Atraumatic, +Post surgical scar Eyes: normal inspection, EOMI Neck: supple, Trachea midline Respiratory/Chest: Normal breath sounds, CTA, No accessory muscle use Cardiovascular: S1, S2, No murmur Abdomen/GI:Soft, Non tender, Bowel sounds present Extremities/Musculoskeletal:normal inspection, Trace edema Neurologic/Psych:AAOX3, grossly no focal neurological deficits Skin: normal color, warm Results & Data Results & Data ([facility]) Vital Signs (Past 12 Hours) Vital Signs Temp Pulse Resp BP Pulse Ox O2 Del Method 06/14/22 08:30 36.5 C 67 18 137/86 96 Room Air 06/14/22 02:55 36.5 C 72 18 147/76 H 97 Room Air
--- NOTE | 2022-06-14 13:15 | Discharge Summary ---
Date of Service June 14, 2022 Admission HPI Per Admitting Provider History obtained from patient and records. History somewhat limited from patient secondary to intermittent lethargy. Medical history significant central neurocytoma status post resection/radiation, postop hydrocephalus status post shunting on acetazolamide, seizure disorder, mood disorder, GERD, episodic alcoholic binging as per records past tobacco abuse. 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 Surgery complicated by hydrocephalus with subsequent need for subdural peritoneal shunting. Additional surgery done last year with tumor recurrence. Postop infection status post completion of antibiotic Rx. Patient was at her mother's home yesterday when mother witness patient to have a generalized tonic-clonic seizures described as patient's eyes rolling back. EMS called to patient's home. Ativan administered which led to termination of seizure. Last seizure was in March 2022 when patient ran out off her Keppra medications. Patient denies unusual stress at home. Claims to be compliant with home medications. No headache, no chest pain, no SOB. Admits to drinking heavily from time to time. Brought to the ER for evaluation. IV Keppra administered at the ER. 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 [employer] Admission Exam Per Admitting Provider Physical Exam Physical Exam: GENERAL: Slightly uncomfortable, intermittent lethargy, obese, no respiratory distress SKIN: Normal color, warm HEENT: Alopecia, [place] palpebral conjunctivae, no ptosis, dry buccal mucosa NECK : Supple, short neck, no tenderness CHEST : Decreased breath sounds, no tenderness HEART : RRR, no obvious murmurs ABDOMEN: Some distention, nontender EXTREMITIES : Minimal LE swelling, no LE tenderness, no other conspicuous defo rmities noted NEUROLOGIC : Intermittent lethargy, no facial asymmetry, gait and stance not assessed Principal Diagnosis Seizure Urinary tract infection Hypokalemia Hypophosphatemia Hypomagnesemia Discharge Data Allergies Allergy/AdvReac Type Severity Reaction Status Date / Time Iodinated Contrast Media Allergy Severe Difficulty Verified 06/11/22 01:16 Breathing ceftriaxone Allergy Mild Hives Verified 06/13/22 13:06 gadopentetic acid AdvReac Intermediate ITCHY Verified 06/10/22 23:43 EYES/MILD COUGH Consultations 06/11/22 00:54 ED Decision to Admit Stat 06/11/22 03:06 Consult Neurology Routine 06/11/22 03:27 HIM [Consult Health Information Management] Routine 06/13/22 17:31 Burn CD for patient Routine Procedures Performed Laboratory Results WBC 5.93 K/ul (4.8-10.8) 06/12/22 08:33 RBC 4.19 M/uL (4.20-5.40) L 06/12/22 08:33 Hgb 12.3 g/dl (12.0-16.0) 06/12/22 08:33 Hct 36.6 % (37.0-47.0) L 06/12/22 08:33 MCV 87.4 fL (80.0-100.0) 06/12/22 08:33 MCH 29.4 pg (25.0-34.0) 06/12/22 08:33 MCHC 33.6 g/dL (32.0-36.0) 06/12/22 08:33 RDW Std Deviation 39.4 fL (36.4-46.3) 06/12/22 08:33 RDW Coeff of [place] 12.3 % (11.5-14.5) 06/12/22 08:33 Plt Count 194 K/uL (130-400) 06/12/22 08:33 MPV 11.1 fL (9.4-12.4) 06/12/22 08:33 Immature Gran % (Auto) 0.3 % 06/11/22 04:50 Neut % (Auto) 74.5 % 06/11/22 04:50 Lymph % (Auto) 17.2 % 06/11/22 04:50 [place] % (Auto) 7.5 % 06/11/22 04:50 Eos % (Auto) 0.1 % 06/11/22 04:50 Baso % (Auto) 0.4 % 06/11/22 04:50 Neut # (Auto) 5.92 K/uL (1.40-6.50) 06/11/22 04:50 Lymph # (Auto) 1.37 K/uL (1.2-3.4) 06/11/22 04:50 [place] # (Auto) 0.60 K/uL (0.11-0.59) H 06/11/22 04:50 Eos # (Auto) 0.01 K/uL (0-0.50) 06/11/22 04:50 Baso # (Auto) 0.03 K/uL (0-0.2) 06/11/22 04:50 Immature Gran # (Auto) 0.02 K/uL (0.01-0.20) 06/11/22 04:50 Sodium 145 mmol/L (136-145) 06/14/22 05:54 Potassium 3.6 mmol/L (3.5-5.1) 06/14/22 05:54 Chloride 118 mmol/L (98-107) H 06/14/22 05:54 Carbon Dioxide 22 mmol/L (21-32) 06/14/22 05:54 Anion Gap 5 (3-11) 06/14/22 05:54 BUN 12 mg/dl (6-23) 06/14/22 05:54 Creatinine 0.79 mg/dl (0.6-1.2) 06/14/22 05:54 Est Cr Clr Drug Dosing 94.2 ml/min 06/14/22 05:54 Est GFR ( Amer) 98.4 ml/min 06/14/22 05:54 Est GFR (Non-Af Amer) 84.9 ml/min 06/14/22 05:54 BUN/Creatinine Ratio 15.2 (10-20) 06/14/22 05:54 Glucose 111 mg/dl (70-99(Fasting)) H 06/14/22 05:54 Estimat Average Glucose 105 mg/dl 06/11/22 04:50 Hemoglobin A1c 5.3 % (4.5-5.6) 06/11/22 04:50 Lactate 0.7 mmol/L (0.4-2.0) 06/11/22 00:26 Calcium 8.5 mg/dl (8.5-10.1) 06/14/22 05:54 Phosphorus 4.1 mg/dl (2.5-4.9) D 06/13/22 05:59 Magnesium 2.3 mg/dl (1.7-2.4) 06/13/22 05:59 Total Bilirubin 0.5 mg/dl (0.2-1.0) 06/10/22 22:25 AST 20 U/L (13-39) 06/10/22 22:25 ALT 12 U/L (7-52) 06/10/22 22:25 Alkaline Phosphatase 83 U/L (34-104) 06/10/22 22:25 Total Protein 6.3 gm/dl (6.0-8.3) 06/10/22 22:25 Albumin 3.9 gm/dl (3.4-5.0) 06/10/22 22:25 Globulin 2.4 gm/dl (2.5-4.0) L 06/10/22 22:25 Albumin/Globulin Ratio 1.6 (0.9-2) 06/10/22 22:25 Procalcitonin < 0.05 ng/ml (0-0.5) 06/12/22 08:33 Urine Color Yellow 06/11/22 Unknown Urine Appearance Cloudy (Clear) A 06/11/22 Unknown Urine pH 5.5 (4.5-7.5) 06/11/22 Unknown Ur Specific [place] 1.012 (1.000-1.030) 06/11/22 Unknown Urine Protein Negative (Negative) 06/11/22 Unknown Urine Glucose (UA) Negative (Negative) 06/11/22 Unknown Urine Ketones Negative (Negative) 06/11/22 Unknown Urine Blood Negative (Negative) 06/11/22 Unknown Urine Nitrite Negative (Negative) 06/11/22 Unknown Urine Bilirubin Negative (Negative) 06/11/22 Unknown Urine Urobilinogen Negative (Negative) 06/11/22 Unknown Ur Leukocyte Esterase 3+ (Negative) H 06/11/22 Unknown Urine WBC (Auto) >30 /hpf (0-5) H 06/11/22 Unknown Urine RBC (Auto) 0-4 /hpf (0-4) 06/11/22 Unknown U Hyaline Cast (Auto) 0 /lpf (0-5) 06/11/22 Unknown U Epithel Cells (Auto) >30 /lpf (0-5) H 06/11/22 Unknown Urine Bacteria (Auto) Negative (Negative) 06/11/22 Unknown Urine Yeast Not Reportable 06/11/22 Unknown SARS-CoV-2, RNA, NAAT NEGATIVE (NEGATIVE) 06/11/[address] 06/10/22 22:16 CT head/brain wo con CLINICAL HISTORY: 52 years-old Female with seizure; h/o brain tumors. Acute seizure like activity with history of prior brain surgery TECHNIQUE: Multiple axial CT images of the head were obtained without contrast. A dose lowering technique was utilized adhering to the principles of ALARA. CT DOSE: 844.62 mGy.cm COMPARISON: Head CT 10/31/2011 FINDINGS: Motion degraded exam. Right frontal craniectomy changes. Right frontal approach ventriculostomy catheter. Catheter anterior to the left frontal lobe redemonstrated. Asymmetric calcifications within the right lateral ventricle appears stable. Apparent encephalomalacia of the right frontal lobe is new/progressed from the prior study. No acute intracranial hemorrhage, midline shift, acute territorial infarct, hydrocephalus or intracranial mass identified. The calvarium is intact. The paranasal sinuses, mastoid air cells, and middle ear cavities are clear. IMPRESSION: 1. Motion degraded exam without acute intracranial abnormality identified. 2. Right frontal craniectomy with right frontal approach ventriculostomy catheter present 3. No hydrocephalus identified. ACT 112: Negative or not required by law. The above report was generated using voice recognition software. It may contain grammatical, syntax or spelling errors. Electronically signed by: Zachary Shook M.D. 06/11/2022 6:39 AM Chest X-Ray 06/10/22 22:46 XR chest 1V portable CLINICAL HISTORY: seizure COMPARISON STUDY: Chest radiograph October 27, 2006 and October 16, 2021. FINDINGS: There is no pneumothorax. A suspected small left pleural effusion is present. Note is made of cardiomegaly with pulmonary vascular congestion. No overt pulmonary edema. Minimal left basilar opacity is present. As before, a disrupted shunt catheter projects over the right hemithorax. This was shown on prior chest radiograph. IMPRESSION: 1. Cardiomegaly with pulmonary vascular congestion and small left pleural effusion. Mild left basilar opacity. 2. Disrupted [employer] shunt catheter, as shown on prior chest radiograph. ACT 112: Negative or not required by law. Electronically signed by: Davon Stroud M.D. 06/11/2022 8:09 AM Brain MRI 06/13/22 00:00 MRI OF THE BRAIN COMBO CLINICAL HISTORY: Seizure. History of brain tumor. COMPARISON STUDY: CT of the brain dated 06/10/2022. MRI of the brain dated 01/10. TECHNIQUE: MRI of the brain was performed utilizing various T1 and T2-weighted sequences in the axial, sagittal, and coronal planes. Contrast-enhanced sequences were acquired following the administration of 9 cc of Gadavist. The patient was premedicated for a reported history of contrast allergy. The examination is degraded by motion artifact. FINDINGS: Brain parenchyma: There is right frontal encephalomalacia related to previous surgery. A right frontal approach ventriculostomy catheter is unchanged in position. There is also a catheter anterior to the left frontal lobe. There is no hemorrhage or midline shift. There is no restricted diffusion typical for acute ischemia. There is a 1.6 x 1.1 x 1.4 cm peripherally enhancing infiltrative lesion identified in the right frontal lobe white matter above the lateral ventricle seen on axial postcontrast image #111 of 170. There are small foci of restricted diffusion within this lesion. This closely approximates and may extend into the right lateral ventricle. There is significant surrounding edema, and this is located adjacent to postsurgical change. There is a 12 mm enhancing lesion in the left frontal cortex seen on axial image #81 with significant surrounding edema. No extra-axial fluid collection is seen. Minimal microangiopathic changes observed. The cerebellar tonsils are normal in configuration. Ventricles, sulci, and cisterns: The left ventricle is larger than the right. This is similar to prior studies. Postsurgical change and scarring is suggested within the right lateral ventricle. There is no hydrocephalus. Pituitary and sella: Unremarkable. Intracranial vasculature: Normal flow voids are maintained at the skull base. Orbits: The bony orbits are grossly intact. Orbital contents are normal in a ppearance. Sinuses and mastoids: There is trace fluid in the right maxillary antrum. The remaining paranasal sinuses and the metatarsals are clear. Calvarium: There is postsurgical change from right frontal craniectomy. No destructive calvarial lesion is seen. There is a left frontal hugo hole. Cervical cord: Partially visualized cervical spinal cord is normal in morphology and signal intensity. IMPRESSION: 1. There is no hemorrhage, midline shift, or evidence of acute ischemia. 2. Postsurgical change as above with [address] 3. There is a 1.6 cm peripherally enhancing and infiltrative appearing lesion identified in the right frontal lobe white matter as detailed above with significant surrounding edema. This is consistent with recurrent/residual di sease. 4. An additional 12 mm enhancing lesion is seen in the left frontal lobe cortex with surrounding edema. This is also consistent with neoplasm. 5. These findings should be correlated with the patient's neurosurgical and oncological history as well as with any more recent prior outside imaging studies. ACT 112: Negative or not required by law. Electronically signed by: Donny Moss M.D. 06/13/2022 2:11 PM Ordered Studies 06/10/22 22:16 CT head/brain wo con Urgent 06/13/22 00:00 MR brain seizure wo/w con Routine Hospital Course (1) Seizure: Breakthrough seizure H/O Central neurocytoma S/P resection/radiation Postop Hydrocephalus S/P shunting --CT Head:Motion degraded exam without acute intracranial abnormality identified. Right frontal craniectomy with right frontal approach ventriculostomy catheter present. No hydrocephalus identified. --EEG:This is an abnormal EEG, recorded in wakefulness only. Right posterior frontal polyspikes, spike and slow wave discharges are potentially epileptogenic, as seen in localization-related epilepsy, with or without secondary generalization. There is no electrographic seizure during this study. Craniotomy related right frontal breach effect is noticed. Intermittent right frontal slowing might suggest underlying structural pathology or dysfunction. --MRI Brain: There is no hemorrhage, midline shift, or evidence of acute ischemia. Postsurgical change as above with [address] There is a 1.6 cm peripherally enhancing and infiltrative appearing lesion identified in the right frontal lobe white matter as detailed above with significant surrounding edema. This is consistent with recurrent/residual disease. An additional 12 mm enhancing lesion is seen in the left frontal lobe cortex with surrounding edema. This is also consistent with neoplasm. These findings should be correlated with the patient's neurosurgical and oncological history as well as with any more recent prior outside imaging studies. --Obtain records from [facility] neurosurgeon's office --Appreciate Neurology Input Continue Diamox Keppra increased to 1500 mg twice daily Continue seizure precautions Needs Keppra level checked in 1 week Patient has virtual visit with her Neurosurgeon Dr.Judy Amezcua tomorrow. Images of MRI are uploaded to [facility] for review Advised to follow-up with neurology and neurosurgery upon discharge Hypokalemia Hypophosphatemia Hypomagnesemia Replete electrolytes as needed Encourage to increase oral intake UTI-POA Blood culture negative to date Urine culture Staph species, Enterococcus faecalis Cefepime de-escalated to Rocephin>> discontinued as patient developed hives on Rocephin Received IV vancomycin for 1 day>> transition to nitrofurantoin Possible Alcohol abuse Counseled to quit drinking Continue thiamine, folic acid Monitor for any withdrawal Mood disorder GERD on PPI Hyperglycemia HbA1C: 5.3 Past tobacco abuse per records DVT Px: SCDs for now Code Status Full code Disposition Home Total Time Total Time Spent Total Time Spent (In Minutes): 50 minutes Discharge Plan Discharge Items Patient Disposition: Home - Self-Care Reason For Visit: SEIZURE Discharge Diagnosis: Seizure Urinary tract infection Hypokalemia Hypophosphatemia Hypomagnesemia Activity: Per Instructions section Exercise/Sports: Wait until after follow-up appointment Non-emergency contact: Primary Care Provider, Specialist and Neurologist Call non-emergency contact if: you have any medication questions, your symptoms worsen, your pain is concerning for you and you have a fever Follow-up/Referrals: Nima Bajwa [Primary Care Provider] - 06/17/22 11:30 am (Dr Bajwa is aware of your request for a referral to Dr Lerner.) Diet: Regular Addtl Attending Provider Instructions: Follow-up with your primary care physician Dr. Bajwa in 1 week Follow-up with your neurosurgeon Dr.Judy Amezcua as advised Follow-up with the neurologist / in 2-4 weeks --- Follow Final blood cultures are pending at the time of discharge. Follow-up with your physician for results. --- Complete antibiotic course nitrofurantoin as prescribed for urinary tract infection --- Start taking Keppra 1500 mg twice a day as recommended by your neurologist -- Quit drinking alcohol as advised. --Obtain blood test (Keppra level) in 1 week and follow-up with the neurologist. Seek immediate medical attention if your symptoms reoccur or worsen Please take all medications as instructed on discharge list below. Please call if you have any questions or problems. You can reach a [facility] hospitalist on duty at [facility] 24 hours a day by calling [phone] Pending Studies at Discharge: Yes Studies:: Blood Culture Stand-Alone Forms: My [facility], Smoking Cessation Medications and DC Order Prescriptions: New nitrofurantoin monohyd/m-cryst 100 mg Capsule 100 mg PO BID Qty: 11 0RF potassium chloride 20 mEq/15 mL Liquid 20 meq PO DAILY 5 Days Qty: 75 0RF Continued ondansetron HCl 4 mg tablet 4 mg PO TID PRN (Reason: NAUSEA/VOMITING) fluoxetine 10 mg capsule 10 mg PO DAILY omeprazole 20 mg capsule,delayed release(DR/EC) 20 mg PO BID acetazolamide 250 mg tablet 500 mg PO TID 30 Days Qty: 180 0RF Changed levetiracetam 100 mg/mL solution 1,500 mg PO BID Qty: 473 1RF Discontinued pantoprazole 20 mg tablet,delayed release (DR/EC) 20 mg PO DAILY Discharge Orders: Discharge Order (Routine); Ordered 06/14/22 Ordered By: Corey Canada Admission Data Admit Date/Time: 06/11/22 02:29 Attending Provider: Corey Canada Admit Provider: Jimmy Espinosa Primary Care Provider: Nima Bajwa Other Providers: Jimmy Espinosa ; Juan Alberto Ocasio Other Interventions: Discharge Summary Assessment (RN) Last Done: 06/14/22 11:59
== END 2022-06-14 12:13 | disposition home or self-care (01) | DRG 101 ==
LOC: ED 22:10 → EDINP 06-11 02:29 → 2N 06-11 03:04